=== PATIENT | male | born 1975 | race Caucasian/White ===

== ENCOUNTER → 2017-09-27 10:21 | Outpatient (CLI) | payer MEDICARE, MEDICAID, SELFPAY | PROVIDERS: PCP Family Medicine; Visit Provider Orthopaedic Surgery | DX: M17.11 Unilateral primary osteoarthritis, right knee (principal); M21.161 Varus deformity, not elsewhere classified, right knee; E11.9 Type 2 diabetes mellitus without complications; Z79.84 Long term (current) use of oral hypoglycemic drugs | CPT/HCPCS: 20610; 99213; J7325 ==

== ENCOUNTER 2017-12-01 07:01 | Outpatient (CLI) | payer MEDICARE, MEDICAID, SELFPAY ==
[2017-12-01 08:06] LABS: Hemoglobin A1C 6.7 % (4.5-6.2)
[2017-12-01 13:41] LABS: Cholesterol 120 mg/dL (50-200); HDL Cholesterol 28 mg/dL (40-60); LDL CHOLESTEROL 72 mg/dL (<100); Triglyceride 148 mg/dL (30-150)
== END 2017-12-01 07:21 ==
PROVIDERS: PCP Family Medicine; Visit Provider Family Medicine
DX: E11.9 Type 2 diabetes mellitus without complications (principal); E78.5 Hyperlipidemia, unspecified
CPT/HCPCS: 36415; 80061; 83721; 83036

== ENCOUNTER 2018-03-23 08:47 | Outpatient (CLI) | payer MEDICARE, MEDICAID, SELFPAY ==
[2018-03-23 10:16] LABS: Hemoglobin A1C 6.8 % (4.5-6.2)
== END 2018-03-23 09:07 ==
PROVIDERS: PCP Family Medicine; Visit Provider Family Medicine
DX: E11.9 Type 2 diabetes mellitus without complications (principal)
CPT/HCPCS: 36415; 83036

== ENCOUNTER → 2018-03-28 09:55 | Outpatient (BNVA) | payer MEDICARE, MEDICAID, SELFPAY | PROVIDERS: PCP Family Medicine; Visit Provider Orthopaedic Surgery | DX: M17.11 Unilateral primary osteoarthritis, right knee (principal) | CPT/HCPCS: 20610; 99211; 99213; J7325 ==

== ENCOUNTER 2018-05-18 07:00 | Emergency (ER) | payer MEDICARE, MEDICAID, SELFPAY ==
[2018-05-18 07:03] VITALS: BP 136/88; PULSE 88; RESP 14; TEMP 36.5; O2SAT 94
--- NOTE | 2018-05-18 07:03 | W.ED.GENAD ---
Discharge Plan Disposition Patient Disposition: HOME Condition: Stable Discharge Details Chief Complaint: DentalOral Clinical Impression: Abscess, dental Primary Care Provider: Binta Pichardo ED Provider: Manjeet Fields Home Meds and New Rx's Prescriptions: New penicillin V potassium 500 mg tablet 500 mg PO QID 10 Days Qty: 40 RF: 0 No Action aspirin [Aspir-81] 81 MG tablet,delayed release (DR/EC) 81 mg PO DAILY Qty: 90 RF: 4 rosuvastatin [Crestor] 40 MG tablet 40 mg PO DAILY Qty: 90 RF: 4 lisinopril 20 MG tablet 20 mg PO DAILY Qty: 90 RF: 4 blood-glucose meter 1 EACH misc 1 ea Miscellaneous DAILY Qty: 1 RF: 0 lancets 1 EACH misc 1 ea Miscellaneous DAILY Qty: 100 RF: 6 metformin 1,000 mg tablet 1,000 mg PO BID Qty: 180 RF: 3 Blood Glucose Test strip 1 ea Miscellaneous DAILY Qty: 100 RF: 6 omeprazole 20 mg capsule,delayed release(DR/EC) 20 mg PO DAILY Qty: 90 RF: 4 Discharge Instructions Instructions: Dental Abscess (ED) Additional Instructions: follow up with your dentist for definitive management you can take 1000mg tylenol and 600mg ibuprofen every 6 hours for pain as needed if you have difficulty breathing or difficulty swallowing liquids return to the emergency department Medical Decision Making 43 yo male comes in with one week of left upper mid molar pain and swelling for a few days. He has normal posterior pharynx and no submandibular swelling. He has mild swelling of the left upper mid molar gum line and pain with percussion to these teeth. No findings to suggest rosa. After discussion of draning here or in dentist office he would like to try here I was able to get a few cc's of purulent material out using an 18g needle, will place on abx and have him f/u with dentist, return precautions given Differential Diagnosis dental abscess, pulpitis HPI General Mode of arrival: ambulatory. Date/Time Provider Initiated Documentation: 05/18/18 07:02. Limitations to Documentation: no limitations. Information obtained by: patient. History of Present Illness 43 year old M presents to the emergency department with the chief complaint of left upper tooth pain, described as moderate, with intensity rated at 6. Quality is described as aching, and is localized to the mouth. Patient reports no radiation. Patient started experiencing this week(s) (1) and it has been constant. No relieving factors improve symptom(s), No exacerbating factors reported . Patient notes no other symptoms.. Patient did receive the following treatments prior to arrival, none Related Data Home Medications Medication Instructions Recorded Confirmed aspirin [Aspir 81] 81 mg PO DAILY #90 tab-cap 03/26/14 05/18/18 rosuvastatin [Crestor] 40 mg PO DAILY #90 tab-cap 01/22/17 05/18/18 lisinopril 20 mg PO DAILY #90 tab-cap 03/10/17 05/18/18 blood-glucose meter #1 ea 03/28/17 05/18/18 lancets #100 ea 03/28/17 05/18/18 metformin 1,000 mg tablet 1,000 mg PO BID #180 tab-cap 11/30/17 05/18/18 blood sugar diagnostic strips #100 strip 01/17/18 05/18/18 omeprazole 20 mg capsule,delayed 20 mg PO DAILY #90 tab-cap 05/12/18 05/18/18 release penicillin V potassium 500 mg PO QID 10 Days #40 tab 05/18/18 Previous Rx's Medication Instructions Recorded rosuvastatin [Crestor] 40 mg PO DAILY #90 tab-cap 01/22/17 lisinopril 20 mg PO DAILY #90 tab-cap 03/10/17 blood-glucose meter #1 ea 03/28/17 lancets #100 ea 03/28/17 metformin 1,000 mg tablet 1,000 mg PO BID #180 tab-cap 11/30/17 blood sugar diagnostic strips #100 strip 01/17/18 omeprazole 20 mg capsule,delayed 20 mg PO DAILY #90 tab-cap 05/12/18 release penicillin V potassium 500 mg PO QID 10 Days #40 tab 05/18/18 Allergies Allergy/AdvReac Type Severity Reaction Status Date / Time No Known Allergies Allergy Unverified 05/18/18 07:07 Review of Systems Review of Systems All systems reviewed & are unremarkable except as noted in HPI and below Constitutional Denies chills and Denies fever(s) ENT Denies change in voice Cardiovascular Denies chest pain and Denies dyspnea Respiratory Denies cough and Denies dyspnea Gastrointestinal Denies abdominal pain, Denies nausea and Denies vomiting [facility] Surgical History PROCEDURES Family History Mother No problems noted. Father Essential hypertension Personal history of malignant neoplasm Heart disease Hyperlipidemia Sister No problems noted. Grandfather Personal history of malignant neoplasm Grandfather No problems noted. Grandmother Diabetes Heart disease Hyperlipidemia Stroke Grandmother No problems noted. Social History Smoking/Tobacco Use Status: Former Tobacco Use Alcohol Intake: current Alcohol Intake frequency: 0-2 drinks per day Drug use: Never Do you feel safe at home: Yes Do you feel safe in your relationship?: Yes Exam Const General: no acute distress Orientation: alert HENMT Head: normal to inspection Ears: external ears normal General nose exam: external nose normal Mouth: moist mucous membranes Eyes General: appearance normal, both eyes and all related structures Neck Neck: normal visual inspection Resp Effort & Inspection: normal respiratory effort and able to speak in complete sentences Cardio Rate: regular rate Skin General skin exam: no rashes or lesions noted Neuro General: alert and oriented x3 Extrem General: normal to inspection Psych Mental Status: mental status grossly normal Procedures Abscess I/D Site: Other (left upper tooth abscess) Side (if applicable): Left Sedation/analgesia: None Local Anesthetic: Lidocaine 1% Amount of anesthesia used (mL): 3 Technique: Needle Aspiration Amount of fluid expressed (mL): 3 Irrigation: No Packing used?: None Complications: Pain
--- NOTE | 2018-05-18 07:17 | ED.GENADUL_ITS ---
Discharge Plan Disposition Patient Disposition: HOME Condition: Stable Discharge Details Chief Complaint: DentalOral Clinical Impression: Abscess, dental Primary Care Provider: Binta Pichardo ED Provider: Manjeet Fields Home Meds and New Rx's Prescriptions: New penicillin V potassium 500 mg tablet 500 mg PO QID 10 Days Qty: 40 RF: 0 No Action aspirin [Aspir-81] 81 MG tablet,delayed release (DR/EC) 81 mg PO DAILY Qty: 90 RF: 4 rosuvastatin [Crestor] 40 MG tablet 40 mg PO DAILY Qty: 90 RF: 4 lisinopril 20 MG tablet 20 mg PO DAILY Qty: 90 RF: 4 blood-glucose meter 1 EACH misc 1 ea Miscellaneous DAILY Qty: 1 RF: 0 lancets 1 EACH misc 1 ea Miscellaneous DAILY Qty: 100 RF: 6 metformin 1,000 mg tablet 1,000 mg PO BID Qty: 180 RF: 3 Blood Glucose Test strip 1 ea Miscellaneous DAILY Qty: 100 RF: 6 omeprazole 20 mg capsule,delayed release(DR/EC) 20 mg PO DAILY Qty: 90 RF: 4 Discharge Instructions Instructions: Dental Abscess (ED) Additional Instructions: follow up with your dentist for definitive management you can take 1000mg tylenol and 600mg ibuprofen every 6 hours for pain as needed if you have difficulty breathing or difficulty swallowing liquids return to the emergency department Medical Decision Making 43 yo male comes in with one week of left upper mid molar pain and swelling for a few days. He has normal posterior pharynx and no submandibular swelling. He has mild swelling of the left upper mid molar gum line and pain with percussion to these teeth. No findings to suggest rosa. After discussion of draning here or in dentist office he would like to try here I was able to get a few cc's of purulent material out using an 18g needle, will place on abx and have him f/u with dentist, return precautions given Differential Diagnosis dental abscess, pulpitis HPI General Mode of arrival: ambulatory . Date/Time Provider Initiated Documentation: 05/18/18 07:02 . Limitations to Documentation: no limitations . Information obtained by: patient . History of Present Illness 43 year old M presents to the emergency department with the chief complaint of left upper tooth pain, described as moderate, with intensity rated at 6. Quality is described as aching, and is localized to the mouth. Patient reports no radiation. Patient started experiencing this week(s) (1) and it has been constant. No relieving factors improve symptom(s), No exacerbating factors reported . Patient notes no other symptoms.. Patient did receive the following treatments prior to arrival, none Related Data Home Medications Medication Instructions Recorded Confirmed aspirin [Aspir 81] 81 mg PO DAILY #90 tab-cap 03/26/14 05/18/18 rosuvastatin [Crestor] 40 mg PO DAILY #90 tab-cap 01/22/17 05/18/18 lisinopril 20 mg PO DAILY #90 tab-cap 03/10/17 05/18/18 blood-glucose meter #1 ea 03/28/17 05/18/18 lancets #100 ea 03/28/17 05/18/18 metformin 1,000 mg tablet 1,000 mg PO BID #180 tab-cap 11/30/17 05/18/18 blood sugar diagnostic strips #100 strip 01/17/18 05/18/18 omeprazole 20 mg capsule,delayed 20 mg PO DAILY #90 tab-cap 05/12/18 05/18/18 release penicillin V potassium 500 mg PO QID 10 Days #40 tab 05/18/18 Previous Rx's Medication Instructions Recorded rosuvastatin [Crestor] 40 mg PO DAILY #90 tab-cap 01/22/17 lisinopril 20 mg PO DAILY #90 tab-cap 03/10/17 blood-glucose meter #1 ea 03/28/17 lancets #100 ea 03/28/17 metformin 1,000 mg tablet 1,000 mg PO BID #180 tab-cap 11/30/17 blood sugar diagnostic strips #100 strip 01/17/18 omeprazole 20 mg capsule,delayed 20 mg PO DAILY #90 tab-cap 05/12/18 release penicillin V potassium 500 mg PO QID 10 Days #40 tab 05/18/18 Allergies Allergy/AdvReac Type Severity Reaction Status Date / Time No Known Allergies Allergy Unverified 05/18/18 07:07 Review of Systems Review of Systems All systems reviewed & are unremarkable except as noted in HPI and below Constitutional Denies chills and Denies fever(s) ENT Denies change in voice Cardiovascular Denies chest pain and Denies dyspnea Respiratory Denies cough and Denies dyspnea Gastrointestinal Denies abdominal pain, Denies nausea and Denies vomiting [facility] Surgical History PROCEDURES Family History Mother No problems noted. Father Essential hypertension Personal history of malignant neoplasm Heart disease Hyperlipidemia Sister No problems noted. Grandfather Personal history of malignant neoplasm Grandfather No problems noted. Grandmother Diabetes Heart disease Hyperlipidemia Stroke Grandmother No problems noted. Social History Smoking/Tobacco Use Status: Former Tobacco Use Alcohol Intake: current Alcohol Intake frequency: 0-2 drinks per day Drug use: Never Do you feel safe at home: Yes Do you feel safe in your relationship?: Yes Exam Const General: no acute distress Orientation: alert HENMT Head: normal to inspection Ears: external ears normal General nose exam: external nose normal Mouth: moist mucous membranes Eyes General: appearance normal, both eyes and all related structures Neck Neck: normal visual inspection Resp Effort & Inspection: normal respiratory effort and able to speak in complete sentences Cardio Rate: regular rate Skin General skin exam: no rashes or lesions noted Neuro General: alert and oriented x3 Extrem General: normal to inspection Psych Mental Status: mental status grossly normal Procedures Abscess I/D Site: Other (left upper tooth abscess) Side (if applicable): Left Sedation/analgesia: None Local Anesthetic: Lidocaine 1% Amount of anesthesia used (mL): 3 Technique: Needle Aspiration Amount of fluid expressed (mL): 3 Irrigation: No Packing used?: None Complications: Pain
== END 2018-05-18 07:25 | disposition home or self-care (01) ==
PROVIDERS: Emergency Provider Emergency Medicine; PCP Family Medicine
DX: K04.7 Periapical abscess without sinus (principal)
CPT/HCPCS: 10160; 99283

== ENCOUNTER → 2018-09-26 09:45 | Outpatient (BNVA) | payer MEDICARE, MEDICAID, SELFPAY | PROVIDERS: PCP Family Medicine; Referring Provider Family Medicine; Visit Provider Orthopaedic Surgery | DX: M17.11 Unilateral primary osteoarthritis, right knee (principal) | CPT/HCPCS: 20610; 99211; 99213; J7325 ==

== ENCOUNTER 2018-11-23 08:03 | Outpatient (CLI) | payer MEDICARE, MEDICAID, SELFPAY ==
[2018-11-23 08:45] LABS: Hemoglobin A1C 8.9 % (4.5-6.2)
[2018-11-23 09:05] LABS: COMMENT (LAB VIEW ONLY) 181.04 mg/dL; Microalb ug/mg Crea 14.3 ug/mg Cr
[2018-11-23 09:29] LABS: ALT 29 U/L (16-63); AST 16 U/L (15-37); Albumin 4.2 g/dL (3.4-5.0); Alkaline Phosphatase 120 U/L (46-116); Anion Gap 7.5 mmol/L (3-11); BUN 16 mg/dL (7-18); Bilirubin, Total 1.9 mg/dL (0.2-1.0); CO2 31.5 mmol/L (21.0-32.0); CREATININE 1.11 mg/dL (0.70-1.30); Calculated LDL 71 mg/dL; Chloride 100 mmol/L (98-107); Cholesterol 127 mg/dL (50-200); Glucose 283 mg/dL (70-100); HDL Cholesterol 27 mg/dL (40-60); Potassium 4.4 mmol/L (3.5-5.1); Sodium 139 mmol/L (136-145); Total Protein 7.4 g/dL (6.4-8.2); Triglyceride 147 mg/dL (30-150)
== END 2018-11-23 08:23 ==
PROVIDERS: PCP Family Medicine; Visit Provider Family Medicine
DX: E11.9 Type 2 diabetes mellitus without complications (principal)
CPT/HCPCS: 36415; 80053; 80061; 82043; 82570; 83036

== ENCOUNTER 2019-02-23 09:51 | Outpatient (CLI) | payer MEDICARE, MEDICAID, SELFPAY ==
[2019-02-23 11:08] LABS: Hemoglobin A1C 8.6 % (3.8-5.6)
[2019-02-23 11:30] LABS: ALT 38 U/L (16-63); AST 19 U/L (15-37); Albumin 4.5 g/dL (3.4-5.0); Alkaline Phosphatase 119 U/L (46-116); Anion Gap 7.4 mmol/L (3-11); BUN 16 mg/dL (7-18); Bilirubin, Total 1.7 mg/dL (0.2-1.0); CO2 31.6 mmol/L (21.0-32.0); CREATININE 0.96 mg/dL (0.70-1.30); Calcium 9.4 mg/dL (8.5-10.1); Chloride 102 mmol/L (98-107); Glucose 238 mg/dL (74-106); Potassium 4.5 mmol/L (3.5-5.1); Sodium 141 mmol/L (136-145); Total Protein 7.7 g/dL (6.4-8.2)
== END 2019-02-23 10:11 ==
PROVIDERS: PCP Family Medicine; Visit Provider Family Medicine
DX: E11.9 Type 2 diabetes mellitus without complications (principal)
CPT/HCPCS: 36415; 80053; 83036

== ENCOUNTER 2019-03-26 11:50 | Outpatient (CLI) | payer MEDICARE, MEDICAID, SELFPAY ==
--- NOTE | 2019-03-26 10:33 | DI.RAD_ITS ---
EXAM: XR STANDING ALIGNMENT INDICATION: KNEE PAIN. COMPARISON: No exams were available for comparison TECHNIQUE: 2D digital imaging was performed. FINDINGS: There is mild bilateral acetabular spurring. There is a mild leg length discrepancy. There are dege nerative changes of both knees. The degenerative changes are severe in the medial femoral tibial kia nt of the right knee where there is varus angulation. Some varus angulation is also seen at the left knee. There is mild spurring at the medial malleoli. The ankle joint spaces and hip joint spaces a re well maintained. IMPRESSION: Severe degenerative changes of the right knee.
--- NOTE | 2019-03-26 10:36 | DI.RAD_ITS ---
EXAM: XR KNEE RT 3V AP,LAT,GUDELIA INDICATION: KNEE PAIN. COMPARISON: MRI R LOWER JOINT WO CONT from 03/19/2013 TECHNIQUE: 2D digital imaging was performed. FINDINGS: There are severe degenerative changes of the medial femoral tibial joint space. There is prominent p eriarticular spurring throughout. There is varus angulation. A joint effusion is seen. IMPRESSION: Severe degenerative changes greatest of the medial femoral tibial joint.
== END 2019-03-26 12:10 ==
PROVIDERS: PCP Family Medicine; Referring Provider Family Medicine; Visit Provider Student in an Organized Health Care Education/Training Program
DX: M25.561 Pain in right knee (principal); M17.11 Unilateral primary osteoarthritis, right knee; M21.70 Unequal limb length (acquired), unspecified site; M25.461 Effusion, right knee; E11.8 Type 2 diabetes mellitus with unspecified complications; Z79.84 Long term (current) use of oral hypoglycemic drugs
CPT/HCPCS: 20610; 73562; 99213; 77073; J1040

== ENCOUNTER → 2019-07-02 10:06 | Outpatient (BNVA) | payer MEDICARE, MEDICAID, SELFPAY | PROVIDERS: PCP Family Medicine; Referring Provider Family Medicine; Visit Provider Student in an Organized Health Care Education/Training Program | DX: M17.31 Unilateral post-traumatic osteoarthritis, right knee | CPT/HCPCS: 99212; 99213 ==

== ENCOUNTER 2019-08-02 04:19 | Outpatient (CLI) | payer MEDICARE, MEDICAID, SELFPAY ==
[2019-08-02 07:57] LABS: Abs Immature Grans 0.01 k/cumm (0.0-0.09); Absolute Basophil Count 0.01 k/cumm (0.0-0.2); Absolute Eosinophil Count 0.14 k/cumm (0.0-0.7); Absolute Lymphocyte Count 1.84 k/cumm (1.2-3.4); Absolute Neutrophil Count 3.58 k/cumm (1.2-6.7); Basophils % 0.2; Eosinophils % 2.3; HCT 47.4 % (40.0-50.0); HGB 16.7 g/dL (13.5-17.5); Immature Grans % 0.2 %; Lymphocytes % 30.3; Mean Corp. HGB Concentration 35.2 g/dL (32.0-36.0); Mean Corpuscular Hemoglobin 30.4 pg (27.0-33.0); Mean Corpuscular Volume 86.3 fL (80-95); Mean Platelet Volume 10.8 fL (8.0-11.0); Monocytes % 8.2; Neutrophils % 58.8; Platelet Count 199 x1000/uL (130-400); RBC 5.49 m/cumm (4.50-6.00); RBC Distribution Width 11.6 % (11.8-14.1); White Blood Cell Count 6.08 k/cumm (4.4-10.8)
[2019-08-02 09:03] LABS: ALT 33 U/L (16-63); AST 15 U/L (15-37); Albumin 4.4 g/dL (3.4-5.0); Alkaline Phosphatase 117 U/L (46-116); Anion Gap 7.3 mmol/L (3-11); BUN 25 mg/dL (7-18); Bilirubin, Total 1.4 mg/dL (0.2-1.0); CO2 30.7 mmol/L (21.0-32.0); CREATININE 1.25 mg/dL (0.70-1.30); Calcium 9.4 mg/dL (8.5-10.1); Chloride 100 mmol/L (98-107); Glucose 240 mg/dL (74-106); Potassium 4.3 mmol/L (3.5-5.1); Sodium 138 mmol/L (136-145); Total Protein 7.6 g/dL (6.4-8.2)
== END 2019-08-02 04:39 ==
PROVIDERS: PCP Family Medicine; Visit Provider Family Medicine
DX: R07.89 Other chest pain (principal); E11.9 Type 2 diabetes mellitus without complications
CPT/HCPCS: 36415; 80053; 83036; 85025

== ENCOUNTER 2019-09-11 03:24 | Outpatient (CLI) | payer MEDICARE, MEDICAID, SELFPAY ==
[2019-09-11 08:56] LABS: ALT 35 U/L (16-63); AST 15 U/L (15-37); Albumin 4.1 g/dL (3.4-5.0); Alkaline Phosphatase 110 U/L (46-116); Anion Gap 8.1 mmol/L (3-11); BUN 18 mg/dL (7-18); Bilirubin, Total 1.6 mg/dL (0.2-1.0); CO2 29.9 mmol/L (21.0-32.0); CREATININE 1.11 mg/dL (0.70-1.30); Calcium 9.2 mg/dL (8.5-10.1); Calculated LDL 64 mg/dL (<100); Chloride 104 mmol/L (98-107); Cholesterol 126 mg/dL (<200); Glucose 197 mg/dL (74-106); HDL Cholesterol 24 mg/dL (40-60); Potassium 3.9 mmol/L (3.5-5.1); Sodium 142 mmol/L (136-145); Triglyceride 192 mg/dL (<150)
== END 2019-09-11 03:44 ==
PROVIDERS: PCP Family Medicine; Visit Provider Family Medicine
DX: E11.9 Type 2 diabetes mellitus without complications (principal)
CPT/HCPCS: 36415; 80053; 80061; 83036

== ENCOUNTER 2019-12-10 01:51 | Outpatient (CLI) | payer MEDICARE, MEDICAID, SELFPAY ==
[2019-12-10 10:26] LABS: Hemoglobin A1C 6.2 % (<5.7)
[2019-12-10 11:00] LABS: COMMENT (LAB VIEW ONLY) 111.92 mg/dL; Microalb ug/mg Crea 11.5 ug/mg Cr
[2019-12-10 11:03] LABS: ALT 29 U/L (16-63); AST 16 U/L (15-37); Albumin 4.4 g/dL (3.4-5.0); Alkaline Phosphatase 98 U/L (46-116); Anion Gap 5.2 mmol/L (3-11); BUN 23 mg/dL (7-18); Bilirubin, Total 2.2 mg/dL (0.2-1.0); CO2 30.8 mmol/L (21.0-32.0); CREATININE 1.11 mg/dL (0.70-1.30); Calcium 9.3 mg/dL (8.5-10.1); Chloride 102 mmol/L (98-107); Glucose 138 mg/dL (74-106); Potassium 4.4 mmol/L (3.5-5.1); Sodium 138 mmol/L (136-145); Total Protein 7.7 g/dL (6.4-8.2)
== END 2019-12-10 02:11 ==
PROVIDERS: PCP Family Medicine; Visit Provider Family Medicine
DX: E11.9 Type 2 diabetes mellitus without complications (principal)
CPT/HCPCS: 36415; 80053; 82043; 82570; 83036

== ENCOUNTER 2020-06-23 03:28 | Outpatient (CLI) | payer MEDICARE, MEDICAID, SELFPAY ==
[2020-06-23 08:46] LABS: Hemoglobin A1C 6.4 % (<5.7)
[2020-06-23 09:07] LABS: Anion Gap 9.1 mmol/L (3-11); BUN 17 mg/dL (7-18); CO2 29.9 mmol/L (21.0-32.0); CREATININE 1.1 mg/dL (0.70-1.30); Calcium 9.1 mg/dL (8.5-10.1); Chloride 103 mmol/L (98-107); Glucose 124 mg/dL (74-106); Potassium 4.1 mmol/L (3.5-5.1); Sodium 142 mmol/L (136-145)
== END 2020-06-23 03:29 | disposition home or self-care (01) ==
LOC: LBO 03:28
PROVIDERS: PCP Family Medicine; Visit Provider Family Medicine
DX: E11.9 Type 2 diabetes mellitus without complications (principal)
CPT/HCPCS: 36415; 80048; 83036

== ENCOUNTER 2021-03-19 02:58 | Outpatient (CLI) | payer MEDICARE, MEDICAID, SELFPAY ==
[2021-03-19 09:03] LABS: Hemoglobin A1C 6.8 % (<5.7)
[2021-03-19 10:12] LABS: COMMENT (LAB VIEW ONLY) 163.28 mg/dL; Microalb ug/mg Crea 24.7 ug/mg Cr
[2021-03-19 10:16] LABS: Calculated LDL 83 mg/dL (<100); Cholesterol 141 mg/dL (<200); HDL Cholesterol 32 mg/dL (40-60); Triglyceride 130 mg/dL (<150)
== END 2021-03-19 02:59 | disposition home or self-care (01) ==
LOC: LBO 02:59
PROVIDERS: PCP Family Medicine; Visit Provider Family Medicine
DX: E11.9 Type 2 diabetes mellitus without complications (principal)
CPT/HCPCS: 36415; 80061; 82043; 82570; 83036

== ENCOUNTER 2021-06-01 10:46 | Outpatient (REF) | payer MEDICARE, MEDICAID, SELFPAY ==
[2021-06-01 16:55] LABS: Hemoglobin A1C 7.7 % (<5.7)
[2021-06-01 17:08] LABS: ALT 44 U/L (16-63); AST 19 U/L (15-37); Albumin 4.2 g/dL (3.4-5.0); Alkaline Phosphatase 125 U/L (46-116); Anion Gap 9.9 mmol/L (3-11); BUN 18 mg/dL (7-18); Bilirubin, Total 1.8 mg/dL (0.2-1.0); CO2 26.1 mmol/L (21.0-32.0); CREATININE 1.1 mg/dL (0.70-1.30); Calcium 8.9 mg/dL (8.5-10.1); Calculated LDL 50 mg/dL (<100); Chloride 100 mmol/L (98-107); Cholesterol 127 mg/dL (<200); Glucose 327 mg/dL (74-106); HDL Cholesterol 29 mg/dL (40-60); Potassium 4.1 mmol/L (3.5-5.1); Sodium 136 mmol/L (136-145); Total Protein 7.2 g/dL (6.4-8.2); Triglyceride 244 mg/dL (<150)
== END 2021-06-01 10:47 | disposition home or self-care (01) ==
LOC: NCHCN 10:46
PROVIDERS: Visit Provider Physician Assistant
DX: E11.9 Type 2 diabetes mellitus without complications (principal)
CPT/HCPCS: 80053; 80061; 83036

== ENCOUNTER 2021-06-11 01:43 | Outpatient (CLI) | payer MEDICARE, MEDICAID, SELFPAY ==
--- NOTE | 2021-06-11 13:44 | DI.RAD_ITS ---
Exam(s) XR CERVICAL SPINE COMP 4-5V EXAM: XR CERVICAL SPINE COMP 4-5V CLINICAL HISTORY: NECK PAIN, M54.2 TECHNIQUE: COMPARISON: No exams were available for comparison FINDINGS: Six views were obtained. There is disc space narrowing at C5-6 and C6-7. There are mild hypertrophi c endplate changes also noted at these levels. There is a mild kyphosis of the lower lumbar spine. Neural foramina appear fairly well maintained on oblique views. No evidence of fracture or dislocati on. IMPRESSION: Degenerative changes, predominantly at C5-6 and C6-7. RADIATION DOSE DELIVERED: Total DLP
== END 2021-06-11 02:03 ==
PROVIDERS: PCP Physician Assistant; Visit Provider Physician Assistant
DX: M50.322 Other cervical disc degeneration at C5-C6 level; M50.323 Other cervical disc degeneration at C6-C7 level
CPT/HCPCS: 72050

== ENCOUNTER 2021-12-30 17:52 | Outpatient (REF) | payer MEDICARE, MEDICAID, SELFPAY ==
[2021-12-30 18:41] LABS: Microalb ug/mg Crea 27.6 ug/mg Cr
== END 2021-12-30 17:53 | disposition home or self-care (01) ==
LOC: NCHCN 17:52
PROVIDERS: PCP Physician Assistant; Visit Provider Physician Assistant
DX: E11.9 Type 2 diabetes mellitus without complications (principal)
CPT/HCPCS: 82043; 82570

== ENCOUNTER 2022-04-30 13:19 | Outpatient (REF) | payer MEDICARE, MEDICAID, SELFPAY ==
[2022-04-30 17:27] LABS: Hemoglobin A1C 9.1 % (<5.7)
[2022-04-30 17:40] LABS: COMMENT (LAB VIEW ONLY) 192.49 mg/dL; Microalb ug/mg Crea 8.8 ug/mg Cr
[2022-04-30 17:58] LABS: ALT 31 U/L (16-63); AST 17 U/L (15-37); Albumin 4.2 g/dL (3.4-5.0); Alkaline Phosphatase 114 U/L (46-116); Anion Gap 7.2 mmol/L (3-11); BUN 19 mg/dL (7-18); CO2 29.8 mmol/L (21.0-32.0); CREATININE 1.2 mg/dL (0.70-1.30); Calcium 9.4 mg/dL (8.5-10.1); Calculated LDL 57 mg/dL (<100); Chloride 102 mmol/L (98-107); Cholesterol 105 mg/dL (<200); Estimated GFR 75.53 (mL/min/1.73m2); Glucose 251 mg/dL (74-106); HDL Cholesterol 33 mg/dL (40-60); Potassium 4.1 mmol/L (3.5-5.1); Sodium 139 mmol/L (136-145); Total Protein 7.1 g/dL (6.4-8.2); Triglyceride 78 mg/dL (<150)
== END 2022-04-30 13:20 | disposition home or self-care (01) ==
LOC: NCHCN 13:19
PROVIDERS: PCP Physician Assistant; Visit Provider Physician Assistant
DX: E11.9 Type 2 diabetes mellitus without complications (principal)
CPT/HCPCS: 80053; 80061; 82043; 82570; 83036

== ENCOUNTER 2023-04-21 13:44 | Outpatient (REF) | payer MEDICARE, MEDICAID, SELFPAY ==
[2023-04-21 16:01] LABS: ALT 39 U/L (16-63); AST 16 U/L (15-37); Albumin 4.4 g/dL (3.4-5.0); Alkaline Phosphatase 123 U/L (46-116); BUN 25 mg/dL (7-18); CREATININE 1.4 mg/dL (0.70-1.30); Calcium 9.4 mg/dL (8.5-10.1); Calculated LDL 126 mg/dL (<100); Chloride 106 mmol/L (98-107); Cholesterol 233 mg/dL (<200); Estimated GFR 62.39 (mL/min/1.73m2); Glucose 253 mg/dL (74-106); HDL Cholesterol 33 mg/dL (40-60); Potassium 3.8 mmol/L (3.5-5.1); Sodium 142 mmol/L (136-145); Total Protein 7.7 g/dL (6.4-8.2); Triglyceride 374 mg/dL (<150)
[2023-04-21 16:25] LABS: Hemoglobin A1C 6.7 % (<5.7)
== END 2023-04-21 13:45 | disposition home or self-care (01) ==
LOC: NCHCN 13:44
PROVIDERS: PCP Physician Assistant; Referring Provider Physician Assistant; Visit Provider Physician Assistant
DX: E11.9 Type 2 diabetes mellitus without complications (principal)
CPT/HCPCS: 80053; 80061; 83036

== ENCOUNTER 2023-06-09 22:18 | Emergency (ER) | payer MEDICARE, MEDICAID, SELFPAY ==
[2023-06-09] VITALS (51 sets, daily range): BP systolic 124–160; BP diastolic 74–94; PULSE 70–77; RESP 8–29; TEMP 36.4; O2SAT 90–98
--- NOTE | 2023-06-09 22:15 | RT.EKG_ITS ---
APPROVED REPORT Exam: Resting ECG Reason for Exam: chest pain Patient Location: E HR:70 bpm ECG Measurements Heart Rate 70 AXIS UT 199 P 68 QRSd 104 QRS 56 QT 417 T 31 QTc 451 Conclusion Sinus rhythm...normal P axis, V-rate 60- 99
--- NOTE | 2023-06-09 22:30 | DI.RAD_ITS ---
Exam(s) XR CHEST 2V PA LATERAL EXAM: XR CHEST 2V PA LATERAL CLINICAL HISTORY: chest pain TECHNIQUE: 2D digital imaging was performed of the chest. Two images were obtained. PA and lateral views were obtained. COMPARISON: No exams were available for comparison FINDINGS: MEDIASTINUM: Normal. HEART: Normal. PULMONARY VASCULATURE: Normal. LUNGS: Clear. PLEURAL SPACE: No pleural effusion or pneumothorax. BONE:Within normal limits for the patient's age. OTHER FINDINGS:Curvilinear air is seen beneath the left hemidiaphragm. This likely reflects normal a ir within the stomach. Follow-up as clinically appropriate. IMPRESSION: No acute pulmonary findings. DATA REPOSITORY: RADIATION DOSE DELIVERED:
[2023-06-09 22:42] LABS: Abs Immature Grans 0.01 10^3/uL (0.0-0.06); Absolute Basophil Count 0.03 10^3/uL (0.0-0.2); Absolute Eosinophil Count 0.11 10^3/uL (0.0-0.7); Absolute Lymphocyte Count 1.79 10^3/uL (1.2-3.4); Absolute Monocyte Count 0.42 10^3/uL (0.1-0.8); Absolute Neutrophil Count 3.03 10^3/uL (1.2-6.7); Basophils % 0.6; HCT 44.3 % (40.0-50.0); HGB 15.4 g/dL (13.5-17.5); Immature Grans % 0.2; Lymphocytes % 33.2; MCH 30.9 pg (27.0-33.0); MCHC 34.8 % (32.0-36.0); MCV 89 fL (80-95); MPV 10.6 fL (8.0-11.0); Monocytes % 7.8; Neutrophils % 56.2; Platelet Count 167 10^3/uL (130-400); RBC 4.99 10^6/uL (4.36-5.78); RDW 11.6 % (11.8-14.1); RDW-SD 36.7 fL; WBC 5.39 10^3/uL (4.4-10.8)
[2023-06-09] MEDS: Aspirin 81 MG CHEW 324 MG CH (22:42)
[2023-06-09] MEDS: Mylanta Suspension 30 ML CUP PO (22:44)
[2023-06-09] MEDS: MORPHine 10 MG/ML VIAL 4 MG IVP (22:45)
[2023-06-09 23:01] LABS: ALT 33 U/L (16-63); AST 14 U/L (15-37); Alkaline Phosphatase 113 U/L (46-116); BUN 15 mg/dL (7-18); CREATININE 1.1 mg/dL (0.70-1.30); Calcium 8.4 mg/dL (8.5-10.1); Chloride 105 mmol/L (98-107); Estimated GFR 83.32 (mL/min/1.73m2); Glucose 259 mg/dL (74-106); Potassium 3.4 mmol/L (3.5-5.1); Sodium 143 mmol/L (136-145); Total Protein 7.2 g/dL (6.4-8.2)
[2023-06-09 23:05] LABS: Troponin I < 50 ng/L (< or =60)
--- NOTE | 2023-06-09 23:15 | DI.VRAD_ITS ---
PROCEDURE INFORMATION: Exam: XR Chest Exam date and time: 06/09/2023 10:54 PM Age: 48 years old Clinical indication: Chest wall pain; Additional info: Chest pain TECHNIQUE: Imaging protocol: Radiologic exam of the chest. Views: 2 views. COMPARISON: CR XR CERVICAL SPINE COMP 4-5V 06/11/2021 1:34 PM FINDINGS: Lungs: Unremarkable. No consolidation. Pleural spaces: Unremarkable. No pleural effusion. No pneumothorax. Heart/Mediastinum: Unremarkable. No cardiomegaly. Bones/joints: Unremarkable. IMPRESSION: No acute findings. Dictated and Authenticated by: Jaswant Ramírez MD. Ordering:HIMA Doss MD
[2023-06-09] MEDS: Ketorolac 30 MG/ML VIAL IVP (23:47)
[2023-06-09] MEDS: Pantoprazole 40 MG VIAL IVP (23:47)
[2023-06-10] VITALS (80 sets, daily range): BP systolic 113–132; BP diastolic 59–77; PULSE 70–82; RESP 12–25; TEMP 36.9; O2SAT 93–98
--- NOTE | 2023-06-10 00:38 | ED.GENADUL_ITS ---
Discharge Plan Disposition Patient Disposition: Home Condition: Good Discharge Details Chief Complaint: Chest Pain Clinical Impression: Chest pain Primary Care Provider: Dino Dee ED Provider: Romario Acevedo Home Meds and New Rx's Prescriptions: No Action (DME) Medial Offloader Brace Qty: 1 0RF Rx Instructions: Please apply to RIGHT knee for medial OA and instability semaglutide 14 mg tablet 14 mg PO DAILY Qty: 90 4RF Rx Instructions: take one tablet daily metformin 1,000 mg tablet 1,000 mg PO DAILY Qty: 90 4RF Rx Instructions: decreased by pt/ NOT SENT (DME) Blood Glucose Test Strip 1 ea Miscellaneous DAILY Qty: 100 3RF Rx Instructions: FOR One Touch METER. Ultra Blue. PT DOES NOT USE INSULIN. E11.9E omeprazole 20 mg capsule,delayed release(DR/EC) 20 mg PO DAILY Qty: 90 3RF Centrum Complete 18-400 mg-mcg tablet 1 tab PO DAILY aspirin [Aspir-81] 81 MG tablet,delayed release (DR/EC) 81 mg PO DAILY Qty: 90 (DME) lancets 28 gauge misc 1 ea Miscellaneous DAILY Qty: 100 6RF Rx Instructions: FOR One Touch METER. NO INSULIN. DIAGNOSIS CODE E11.9 (DME) blood-glucose meter [OneTouch Ultra2 Meter] Misc 1 ea Miscellaneous DAILY Qty: 1 4RF Rx Instructions: Check blood sugar twice a day lisinopril 20 mg tablet 20 mg PO DAILY Qty: 90 4RF Rx Instructions: take one tablet daily rosuvastatin [Crestor] 40 mg tablet 40 mg PO DAILY Qty: 90 4RF bupropion HCl 150 mg tablet extended release 24 hr 150 mg PO QAM Qty: 90 1RF dapagliflozin propanediol 10 mg tablet 10 mg PO DAILY Qty: 90 1RF Discharge Instructions Instructions: Chest Pain (ED) Additional Instructions: Your workup is negative for any organ damage to your heart, lungs, liver, or pancreas. Your symptoms have improved here in the emergency room with generalized pain relievers and the medications that help control your reflux disease. Continue current medications as previously directed. Follow-up with your regular primary care doctor for recheck and further management, especially if you have any recurrent or ongoing symptoms. You can always return to the ER for any new concerns or sudden changes in your health which you feel require emergency medical attention. Discharge Data Discharge Physician: Romario Acevedo [facility] General Date/Time Provider Initiated Documentation: 06/09/23 22:25 . HPI Narrative: The patient has a 48-year-old male, with a past medical history significant for diabetes mellitus, hypertension, gastroesophageal reflux disease, hyperlipidemia, and depression, presents to the emergency department this evening after developing chest pain while at rest watching TV and playing the [employer] shortly before arrival to the emergency room. The patient states that he was having a somewhat piercing chest pain, which he felt was like a needle sticking into the front of his chest wall, overlying his left parasternal border. The patient reports that the symptoms did make him feel somewhat short of breath, but he denied any sweating or nausea symptoms. The patient denies a cough or recent upper respiratory tract infection symptoms. The patient denies any fevers or chills. Related Data Home Medications Medication Instructions Recorded Confirmed aspirin 81 mg tablet,delayed 81 mg PO DAILY #90 tab-caps 03/26/14 06/09/23 release (Aspir-) multivitamin-ferrous 1 tab PO DAILY 12/04/18 06/09/23 fumarate-folic acid 18 mg-400 mcg tablet (Centrum Complete) lancets 28 gauge #100 ea 01/23/19 06/09/23 Medial Offloader Brace #1 ea 04/09/19 06/09/23 blood-glucose meter (OneTouch #1 ea 11/22/19 06/09/23 Ultra2 Meter) lisinopril 20 mg tablet 20 mg PO DAILY #90 tab-caps 10/27/20 06/09/23 rosuvastatin 40 mg tablet (Crestor) 40 mg PO DAILY #90 tab-caps 10/27/20 06/09/23 semaglutide 14 mg tablet 14 mg PO DAILY #90 tabs 12/22/20 06/09/23 metformin 1,000 mg tablet 1,000 mg PO DAILY #90 tab-caps 12/24/20 06/09/23 blood sugar diagnostic (Blood #100 strips 03/24/21 06/09/23 Glucose Test strips) omeprazole 20 mg capsule,delayed 20 mg PO DAILY #90 tab-caps 03/24/21 06/09/23 release bupropion HCl 150 mg 24 hr tablet, 150 mg PO QAM #90 tabs 05/27/21 06/09/23 extended release dapagliflozin propanediol 10 mg 10 mg PO DAILY #90 tabs 09/03/21 06/09/23 tablet Previous Rx's Medication Instructions Recorded lancets 28 gauge #100 ea 01/23/19 Medial Offloader Brace #1 ea 04/09/19 blood-glucose meter (OneTouch #1 ea 11/22/19 Ultra2 Meter) lisinopril 20 mg tablet 20 mg PO DAILY #90 tab-caps 10/27/20 rosuvastatin 40 mg tablet (Crestor) 40 mg PO DAILY #90 tab-caps 10/27/20 semaglutide 14 mg tablet 14 mg PO DAILY #90 tabs 12/22/20 metformin 1,000 mg tablet 1,000 mg PO DAILY #90 tab-caps 12/24/20 blood sugar diagnostic (Blood #100 strips 03/24/21 Glucose Test strips) omeprazole 20 mg capsule,delayed 20 mg PO DAILY #90 tab-caps 03/24/21 release bupropion HCl 150 mg 24 hr tablet, 150 mg PO QAM #90 tabs 05/27/21 extended release dapagliflozin propanediol 10 mg 10 mg PO DAILY #90 tabs 09/03/21 tablet Allergies Allergy/AdvReac Type Severity Reaction Status Date / Time No Known Allergies Allergy Unverified 06/09/23 22:29 General Stated Complaint: Chest Pain LUKE: 3 Exam Const General: cooperative, comfortable and no acute distress Resp Effort & Inspection: normal respiratory effort and able to speak in complete sentences Auscultation: clear to auscultation bilaterally Cardio Rate: regular rate Rhythm: regular rhythm Heart Sounds: S1 normal and S2 normal GI Inspection: normal to inspection Palpation: soft and nontender Auscultation: normal bowel sounds Skin General skin exam: no rashes or lesions noted Lesions: no lesions Wounds: no wounds Neuro General: patient alert, patient awake, patient oriented x3 and moves all extremities Cranial Nerves: CN's II-XI intact bilaterally Cognition: normal cognition Speech: speech normal Motor: muscle tone normal throughout and strength 5/5 throughout Sensory Exam: no sensory deficits noted Course Vital Signs Vital signs: Vital Signs Temperature 36.4 C 06/09/23 22:21 Pulse 70 06/09/23 22:21 Respiratory Rate 16 06/09/23 22:21 Blood Pressure 160/86 H 06/09/23 22:21 Pulse Oximetry 98 04/25/24 22:21 Temperature 36.4 C 06/09/23 22:21 Temperature Source Tympanic 06/09/23 22:21 Pulse 77 06/10/23 00:30 Pulse Rhythm Regular 06/10/23 00:30 Pulse Strength Normal 06/10/23 00:30 Respiratory Rate 15 06/10/23 00:30 Respiratory Effort Normal 06/10/23 00:30 Respiratory Depth Normal 06/10/23 00:30 Respiratory Pattern Normal 06/10/23 00:30 Blood Pressure 132/66 06/10/23 00:30 Blood Pressure Mean 88 06/10/23 00:30 Blood Pressure Position Sitting 06/10/23 00:30 Pulse Oximetry 94 06/10/23 00:30 Oxygen Delivery Method Room Air 06/10/23 00:30 Oxygen Flow Rate 0 06/10/23 00:30 Pain Level 3 06/10/23 00:30 Lab/Test Results Lab/Test Results: Laboratory Tests Range/Units 06/09/23 22:36 WBC (4.4-10.8) 10^3/uL 5.39 RBC (4.36-5.78) 10^6/uL 4.99 Hgb (13.5-17.5) g/dL 15.4 Hct (40.0-50.0) % 44.3 MCV (80-95) fL 89 MCH (27.0-33.0) pg 30.9 MCHC (32.0-36.0) % 34.8 RDW (11.8-14.1) % 11.6 L Plt Count (130-400) 10^3/uL 167 MPV (8.0-11.0) fL 10.6 Immature Gran % 0.2 Neutrophils % 56.2 Lymphocytes % 33.2 Monocytes % 7.8 Eosinophils % 2.0 Basophils % 0.6 Nucleated RBC % (0.0-0.3) % 0.0 Absolute Neutrophils (1.2-6.7) 10^3/uL 3.03 Absolute Lymphocytes (1.2-3.4) 10^3/uL 1.79 Absolute Monocytes (0.1-0.8) 10^3/uL 0.42 Absolute Eosinophils (0.0-0.7) 10^3/uL 0.11 Absolute Basophils (0.0-0.2) 10^3/uL 0.03 Sodium (136-145) mmol/L 143 Potassium (3.5-5.1) mmol/L 3.4 L Chloride (98-107) mmol/L 105 Carbon Dioxide (21.0-32.0) mmol/L 25.0 Anion Gap (3-11) mmol/L 13.0 H BUN (7-18) mg/dL 15 Creatinine (0.70-1.30) mg/dL 1.1 Est GFR (CKD-EPI 2020) (mL/min/1.73m2) 83.32 Glucose (74-106) mg/dL 259 H Calcium (8.5-10.1) mg/dL 8.4 L Magnesium (1.8-2.4) mg/dL 2.0 Total Bilirubin (0.2-1.0) mg/dL 1.0 AST (15-37) U/L 14 L ALT (16-63) U/L 33 Alkaline Phosphatase (46-116) U/L 113 Troponin I (< or =60) ng/L < 50 Total Protein (6.4-8.2) g/dL 7.2 Albumin (3.4-5.0) g/dL 4.0 Medical Decision Making The patient was seen and examined. He is in no distress and has normal vital signs here in the emergency room. The patient had an EKG which had some globally diminished repolarization, but nothing that would be consistent with pattern injury ischemia. The patient's initial troponin here was negative for elevation, and the remainder of his laboratory workup was essentially benign other than his elevated blood glucose level. The patient does have a history of gastroesophageal reflux disease and this could represent some decompensation that disease process. There is no focal inflammatory changes in his lungs or any evidence of liver or biliary tract dysfunction. The patient improved significantly with the medications that I provided here in the emergency department this evening. He will have a repeat troponin at a 3-hour interval and if this is negative he will be referred back to primary care with recommendation to consider increasing his GI regimen as needed for his symptoms. 0145 - The patient's repeat troponin was negative for elevation. Symptoms resolved with a combination of generalized pain relievers and medications specific for GERD. Quality:SDOH Health Related Social Needs: No Data to Display PFSH All Active Problems (Updated 06/10/23 @ 01:52 by Romario Acevedo MD) Chest pain (Acute) Essential hypertension (Acute) Type 2 diabetes mellitus with diabetic nephropathy (Acute) Degenerative joint disease of right knee (Chronic) Depo-Medrol injection: 03/26/2019 Synvis injections - Dr. Bangura Obesity (Chronic) History of lymph node excision (Acute) Lower respiratory infection (e.g., bronchitis, pneumonia, pneumonitis, pulmonitis) (Acute 11/04/15) Hyperlipidemia (Acute) Gastroesophageal reflux disease with esophagitis (Acute) Atypical chest pain (Acute 02/27/14) negative nuclear stress test (Sestamibi)/EF 49% Surgical History PROCEDURES EXCISE INGUINAL NODE right inguinal node bx Family History (Updated 12/24/19 @ 10:50 by Shiela James) Mother Alzheimer disease Father , age 71 Essential hypertension Heart disease Hyperlipidemia Cancer Depression Maternal Grandfather Cancer Hypertension Paternal Grandfather , age 58 Alcohol abuse Depression Diabetes Heart disease Maternal Grandmother , age 64 Diabetes Heart disease Hyperlipidemia Stroke Alcohol abuse Depression Social History (Updated 12/29/20 @ 15:53 by Noelle Vega) Smoking/Tobacco Use Status: Former Tobacco Use Tobacco: How many years used: 15 Second Hand Exposure: Yes Smoking risk assessment performed?: Yes Alcohol Intake: current Alcohol Intake frequency: 3 or more drinks per day Alcohol type: hard liquor Drug use: Daily Substance use type: marijuana Caregiver/Support person: No Household members: family Housing: house Communication Needs: None Do you need help understanding health information?: Rarely Pets and animals: Yes Pets and animals: cat(s) and dog(s) Sexually active: No Do you think of yourself as: straight/heterosexual Current gender identity: male What is your relationship status?: How often do you talk on the phone with friends or family?: twice per week How often do you get together with friends or relatives?: once per week How often do you attend voodoo or taoism services?: decline to answer Do you belong to any clubs or organized social groups?: no Panel score (0-1 are the most socially isolated patients): 2 What type of physical activity do you participate in: walking Duration: 30-45 minutes/day Frequency: 5-6 times per week Jazmine/Jehovah'S Witness: [employer]ist Special jazmine needs: No Seatbelt use: always Helmet use: No Drive intox or ride w/intox experienced truck driver: No Do you feel safe at home: Yes Do you feel safe in your relationship?: Yes PAWSS Have you Been Recently Intoxicated or Drunk Within the Last 30 days?: No Have you Ever Experienced Previous Episodes of Alcohol Withdrawal?: No Have you ever Experienced Withdrawal Seizures?: No Have you ever Experienced Delirium Tremens(DT)s?: No Have you ever undergone Alcohol Rehabilitation Treatment (i.e, inpt ot outpatient treatment programs)?: No Have you ever Experienced Blackouts?: No Have you ever Combined Alcohol with other Downers within the last 90 days?: No Have you ever Combined Alcohol with any other Substance of Abuse during the last 90 days?: No Positive Blood Alcohol level on Presentation? [PCS.BAL]: No Evidence of Increased Autonomic Activity (i.e. HR>120, tremor, sweating, agitation, nausea)?: No Result: 0
[2023-06-10 01:33] LABS: Troponin I < 50 ng/L (< or =60)
== END 2023-06-10 02:00 | disposition home or self-care (01) ==
PROVIDERS: Emergency Provider Emergency Medicine Emergency Medical Services; PCP Physician Assistant
DX: R07.9 Chest pain, unspecified (principal); I10 Essential (primary) hypertension; E78.5 Hyperlipidemia, unspecified; K21.9 Gastro-esophageal reflux disease without esophagitis; E11.21 Type 2 diabetes mellitus with diabetic nephropathy; Z87.891 Personal history of nicotine dependence; Z79.84 Long term (current) use of oral hypoglycemic drugs; Z79.82 Long term (current) use of aspirin
CPT/HCPCS: 36415; 80053; 82962; 93005; 96374; 96375; 99285; 71046; 83735; 84484; 85025; 93010; 99284; J1885; J2270; J2470

== ENCOUNTER 2023-06-28 09:41 | Inpatient (IN) | payer MEDICARE, MEDICAID, SELFPAY ==
[2023-06-28] VITALS (27 sets, daily range): BP systolic 105–181; BP diastolic 54–104; PULSE 62–83; RESP 14–24; TEMP 36.1–36.7; O2SAT 92–100; BMI 34.9
--- NOTE | 2023-06-28 10:04 | W.ED.GENAD ---
Discharge Plan Disposition Patient Disposition: Admit to [facility] Condition: Stable Discharge Details Clinical Impression: Acute appendicitis Admit Date/Time: 06/28/23 13:24 Admit Provider: Starr Umaña Attending Provider: Starr Umaña Primary Care Provider: Dino Dee ED Provider: Sara Barbosa Discharge Data Discharge Date/Time-TO BE ENTERED AT DEPARTURE: 06/28/23 14:11 HPI General Mode of arrival: ambulatory. Date/Time Provider Initiated Documentation: 06/28/23 10:04. Limitations to Documentation: no limitations. Information obtained by: patient, RN notes reviewed and old records reviewed. HPI Narrative: 48-year-old male presents to the ER with a chief complaint of right lower quadrant abdominal pain which began last night at midnight. Denies any nausea vomiting diarrhea. He did eat breakfast this morning before 8 AM. He did take 2 of his medications at home prior to arrival. Sent here for evaluation for appendicitis. Past medical history includes type 2 diabetes, GERD, high cholesterol, hypertension. Denies any previous surgeries. He is alert and oriented x 4. Related Data Home Medications Medication Instructions Recorded Confirmed aspirin 81 mg tablet,delayed 81 mg PO DAILY #90 tab-caps 03/26/14 06/28/23 release (Aspir-) multivitamin-ferrous 1 tab PO DAILY 12/04/18 06/28/23 fumarate-folic acid 18 mg-400 mcg tablet (Centrum Complete) lancets 28 gauge #100 ea 01/23/19 06/28/23 Medial Offloader Brace #1 ea 04/09/19 06/28/23 blood-glucose meter (OneTouch #1 ea 11/22/19 06/28/23 Ultra2 Meter) lisinopril 20 mg tablet 20 mg PO DAILY #90 tab-caps 10/27/20 06/28/23 rosuvastatin 40 mg tablet (Crestor) 40 mg PO DAILY #90 tab-caps 10/27/20 06/28/23 semaglutide 14 mg tablet 14 mg PO DAILY #90 tabs 12/22/20 06/28/23 metformin 1,000 mg tablet 1,000 mg PO DAILY #90 tab-caps 12/24/20 06/28/23 blood sugar diagnostic (Blood #100 strips 03/24/21 06/28/23 Glucose Test strips) omeprazole 20 mg capsule,delayed 20 mg PO DAILY #90 tab-caps 03/24/21 06/28/23 release bupropion HCl 150 mg 24 hr tablet, 150 mg PO QAM #90 tabs 05/27/21 06/28/23 extended release dapagliflozin propanediol 10 mg 10 mg PO DAILY #90 tabs 09/03/21 06/28/23 tablet Previous Rx's Medication Instructions Recorded lancets 28 gauge #100 ea 01/23/19 Medial Offloader Brace #1 ea 04/09/19 blood-glucose meter (OneTouch #1 ea 11/22/19 Ultra2 Meter) lisinopril 20 mg tablet 20 mg PO DAILY #90 tab-caps 10/27/20 rosuvastatin 40 mg tablet (Crestor) 40 mg PO DAILY #90 tab-caps 10/27/20 semaglutide 14 mg tablet 14 mg PO DAILY #90 tabs 12/22/20 metformin 1,000 mg tablet 1,000 mg PO DAILY #90 tab-caps 12/24/20 blood sugar diagnostic (Blood #100 strips 03/24/21 Glucose Test strips) omeprazole 20 mg capsule,delayed 20 mg PO DAILY #90 tab-caps 03/24/21 release bupropion HCl 150 mg 24 hr tablet, 150 mg PO QAM #90 tabs 05/27/21 extended release dapagliflozin propanediol 10 mg 10 mg PO DAILY #90 tabs 09/03/21 tablet Allergies Allergy/AdvReac Type Severity Reaction Status Date / Time No Known Allergies Allergy Unverified 06/28/23 09:48 General Stated Complaint: Abd Prob LUKE: 3 Review of Systems All systems reviewed & are unremarkable except as noted in HPI and below Gastrointestinal Gastrointestinal: Reports as per HPI, Reports abdominal pain, Denies nausea and Denies vomiting Genitourinary Genitourinary: Denies dysuria Exam Narrative Exam Narrative: Constitutional: Alert and oriented x3. Appears stated age. Normal body habitus. Head: Normocephalic, no trauma. Eyes: Pupils PERRL, Red reflex noted, EOM's intact. Eyelids symmetrical without lesions, discharge, or swelling. ENT: Bilateral TM's WNL, External ear normal to inspection, no mastoid TTP, swelling, or erythema, Nasal turbinates WNL, no nasal discharge. Normal dentition, Posterior pharynx WNL, no exudate. Chest: RRR, Normal S1, S2, distal pulses intact. Resp: Lungs clear to auscultation bilaterally, no wheezes, rales, or rhonchi. Abdomen: Soft, non-distended, hypoactive bowel sounds all 4 quads. Right lower quadrant tenderness with palpation. Musculoskeletal: Normal gait, Moves all 4 extremities without difficulty. Skin: No suspicious rashes or lesions. Capillary refill less than 2 sec. Neurologic: Cranial nerves II-XII intact. Alert and oriented x 3. Motor: No deficits noted. Sensory: Intact bilaterally all 4 extremities. Hematologic/Lymphatic: No ecchymosis, no lymphadenopathy. Course Vital Signs Vital signs: Vital Signs Temperature 36.6 C 06/28/23 09:48 Pulse 83 06/28/23 09:48 Respiratory Rate 16 06/28/23 09:48 Blood Pressure 181/95 H 06/28/23 09:48 Pulse Oximetry 100 06/28/23 09:48 Temperature 36.6 C 06/28/23 09:48 Temperature Source Temporal Artery Scan 06/28/23 09:48 Pulse 83 06/28/23 09:48 Respiratory Rate 16 06/28/23 09:48 Respiratory Effort Normal, Non-Labored, Short of Breath 06/28/23 09:50 Blood Pressure 181/95 H 06/28/23 09:48 Blood Pressure Position Sitting 06/28/23 09:48 Pulse Oximetry 100 06/28/23 09:48 Oxygen Delivery Method Room Air 06/28/23 09:48 Oxygen Flow Rate 0 06/28/23 09:48 Pain Level 10 06/28/23 09:48 Medical Decision Making 48-year-old male presents to the ER with a chief complaint of right lower quadrant abdominal pain which began last night at midnight. Denies any nausea vomiting diarrhea. He did eat breakfast this morning before 8 AM. He did take 2 of his medications at home prior to arrival. Sent here for evaluation for appendicitis. Past medical history includes type 2 diabetes, GERD, high cholesterol, hypertension. Denies any previous surgeries. He is alert and oriented x 4. Abdominal pain workup ordered. Liter normal saline, 4 of Zofran ordered, 2 mg of morphine. CBC shows no leukocytosis, CMP shows a glucose of 338 magnesium 1.6 bilirubin 2.0. Lipase 46 urinalysis largely within normal limits except for 500 glucose. Discussed labs including glucose of 338 with patient he verbalized understanding. He did have a higher reading this morning. He does take metformin at home. Patient still states that his pain is 8 out of 10 and additional 2 mg of morphine ordered. Spoke with radiologist positive acute appendicitis. Surgery paged. Discussed n.p.o. status with patient he verbalized understanding. Spoke with Dr. Umaña who recommends Zosyn, patient made n.p.o. status ED admission orders placed at Dr. Umaña's request. Patient to be admitted for acute appendicitis. This text was generated using [email or web address] system, please disregard any oddities of phrase or misspellings. Medical Records Medical records reviewed: Yes I reviewed the patient's medical records. Imaging Data Radiologic Study: Imaging: CT Scan Radiologist's impression: FINDINGS: VISUALIZED LUNG BASES: No nodules nor pleural effusions evident. ABDOMEN: There is no ascites in the upper abdomen but there is small amount of ascites in the dependent aspect of the pelvis. LIVER: There are no focal hepatic lesions evident. No dilated intrahepatic ducts. GALLBLADDER/BILIARY: No obvious gallbladder pathology. CBD is not dilated. PANCREAS: No evidence of pancreatic mass nor dilatation of the pancreatic duct. SPLEEN: Spleen size upper normal. No intrasplenic lesions. Splenic and portal veins are patent. ADRENALS: There are no significant adrenal masses. KIDNEYS:No cysts evident. No solid renal masses. No calculi nor hydronephrosis.. ABDOMINAL AORTA: Abdominal aorta is not enlarged. LYMPH NODES:There is no retroperitoneal nor paraaortic adenopathy. ABDOMINAL WALL: No evidence of significant anterior abdominal wall nor inguinal hernia. GI: There is no evidence of bowel obstruction, free air, nor abscess. PELVIS: GI: The appendix is abnormal. It is uniformly thickened with diameter 14 mm. There is periappendiceal streaking in the small amount of periappendiceal fluid but no formed abscess. However, there is some fluid in the dependent aspect of the pelvis which is most probably related to the appendicitis. There is no calcified appendicular lith. No free air.No evidence of sigmoid diverticulitis. LYMPH NODES: There is no intrapelvic nor inguinal adenopathy. REPRODUCTIVE: Prostate calcified but not enlarged. Seminal vesicles unremarkable. URINARY BLADDER: Urinary bladder wall is uniformly thickened. Probably related to cystitis or outflow obstruction. There are no diverticuli. No focal masses. No radiopaque calculi evident in the urinary bladder lumen. OSSEOUS: No fractures and no significant osseous lesions. IMPRESSION: 1. Findings are consistent with acute appendicitis. Appendix is uniformly thickened to diameter of 14 mm. There is some surrounding fluid as well as fluid in the dependent aspect of the pelvis which is most probably related to the acute appendicitis. 2. No evidence of sigmoid diverticulitis. Called by myself to ER provider. Lab Data Lab results reviewed: Yes I reviewed the patient's lab results. Labs: Laboratory Tests Range/Units 06/28/23 06/28/23 10:25 11:25 WBC (4.4-10.8) 10^3/uL 8.48 RBC (4.36-5.78) 10^6/uL 5.16 Hgb (13.5-17.5) g/dL 15.9 Hct (40.0-50.0) % 45.0 MCV (80-95) fL 87 MCH (27.0-33.0) pg 30.8 MCHC (32.0-36.0) % 35.3 RDW (11.8-14.1) % 11.6 L Plt Count (130-400) 10^3/uL 161 MPV (8.0-11.0) fL 11.2 H Immature Gran % % 0.2 Neutrophils % % 73.3 Lymphocytes % % 15.6 Monocytes % % 9.1 Eosinophils % % 1.4 Basophils % % 0.4 Nucleated RBC % (0.0-0.3) % 0.0 Absolute Neutrophils (1.2-6.7) 10^3/uL 6.22 Absolute Lymphocytes (1.2-3.4) 10^3/uL 1.32 Absolute Monocytes (0.1-0.8) 10^3/uL 0.77 Absolute Eosinophils (0.0-0.7) 10^3/uL 0.12 Absolute Basophils (0.0-0.2) 10^3/uL 0.03 Sodium (136-145) mmol/L 136 Potassium (3.5-5.1) mmol/L 3.9 Chloride (98-107) mmol/L 100 Carbon Dioxide (21.0-32.0) mmol/L 27.9 Anion Gap (3-11) mmol/L 8.1 BUN (7-18) mg/dL 18 Creatinine (0.70-1.30) mg/dL 1.2 Est GFR (CKD-EPI 2020) (mL/min/1.73m2) 75.06 Glucose (74-106) mg/dL 338 H Calcium (8.5-10.1) mg/dL 8.7 Magnesium (1.8-2.4) mg/dL 1.6 L Total Bilirubin (0.2-1.0) mg/dL 2.0 H AST (15-37) U/L 15 ALT (16-63) U/L 35 Alkaline Phosphatase (46-116) U/L 126 H Troponin I (< or =60) ng/L < 50 Total Protein (6.4-8.2) g/dL 7.5 Albumin (3.4-5.0) g/dL 3.9 Lipase (16-77) U/L 46 Urine Color (Yellow) Yellow Urine Clarity (Clear) Clear Urine pH (5-8) 7.0 Ur Specific [place] (1.005-1.025) 1.020 Urine Protein (Neg-Trace) mg/dL Negative Urine Ketones (Negative) mg/dL Negative Urine Blood (Negative) Negative Urine Nitrite (Negative) Negative Urine Bilirubin (Negative) Negative Urine Urobilinogen (Up to 0.2) mg/dL 1.0 H Ur Leukocyte Esterase (Negative) Negative Urine Glucose (Negative) mg/dL 500 H Quality:SDOH Health Related Social Needs: No Data to Display PFSH All Active Problems (Updated 06/28/23 @ 13:26 by Sara Barbosa NP) Acute appendicitis (Acute) Chest pain (Acute) Essential hypertension (Acute) Type 2 diabetes mellitus with diabetic nephropathy (Acute) Degenerative joint disease of right knee (Chronic) Depo-Medrol injection: 03/26/2019 Synvisc injections - Dr. Bangura Obesity (Chronic) History of lymph node excision (Acute) Lower respiratory infection (e.g., bronchitis, pneumonia, pneumonitis, pulmonitis) (Acute 11/04/15) Hyperlipidemia (Acute) Gastroesophageal reflux disease with esophagitis (Acute) Atypical chest pain (Acute 02/27/14) negative nuclear stress test (Sestamibi)/EF 49% Surgical History PROCEDURES EXCISE INGUINAL NODE right inguinal node bx Family History Mother Alzheimer disease Father , age 71 Essential hypertension Heart disease Hyperlipidemia Cancer Depression Maternal Grandfather Cancer Hypertension Paternal Grandfather , age 58 Alcohol abuse Depression Diabetes Heart disease Maternal Grandmother , age 64 Diabetes Heart disease Hyperlipidemia Stroke Alcohol abuse Depression Social History Smoking/Tobacco Use Status: Former Tobacco Use Tobacco: How many years used: 15 Second Hand Exposure: Yes Smoking risk assessment performed?: Yes Alcohol Intake: current Alcohol Intake frequency: 3 or more drinks per day Alcohol type: hard liquor Drug use: Daily Substance use type: marijuana Caregiver/Support person: No Household members: family Housing: house Communication Needs: None Do you need help understanding health information?: Rarely Pets and animals: Yes Pets and animals: cat(s) and dog(s) Sexually active: No Do you think of yourself as: straight/heterosexual Current gender identity: male What is your relationship status?: How often do you talk on the phone with friends or family?: twice per week How often do you get together with friends or relatives?: once per week How often do you attend mandaeism or mormon services?: decline to answer Do you belong to any clubs or organized social groups?: no Panel score (0-1 are the most socially isolated patients): 2 What type of physical activity do you participate in: walking Duration: 30-45 minutes/day Frequency: 5-6 times per week Jazmine/Roman Catholic: Unitarian Universalist Special jazmine needs: No Seatbelt use: always Helmet use: No Drive intox or ride w/intox catshovel driver: No Do you feel safe at home: Yes Do you feel safe in your relationship?: Yes
[2023-06-28 10:31] LABS: Abs Immature Grans 0.02 10^3/uL (0.0-0.06); Absolute Basophil Count 0.03 10^3/uL (0.0-0.2); Absolute Eosinophil Count 0.12 10^3/uL (0.0-0.7); Absolute Lymphocyte Count 1.32 10^3/uL (1.2-3.4); Absolute Monocyte Count 0.77 10^3/uL (0.1-0.8); Absolute Neutrophil Count 6.22 10^3/uL (1.2-6.7); Basophils % 0.4 %; Eosinophils % 1.4 %; HGB 15.9 g/dL (13.5-17.5); Immature Grans % 0.2 %; Lymphocytes % 15.6 %; MCH 30.8 pg (27.0-33.0); MCHC 35.3 % (32.0-36.0); MCV 87 fL (80-95); MPV 11.2 fL (8.0-11.0); Monocytes % 9.1 %; Neutrophils % 73.3 %; Platelet Count 161 10^3/uL (130-400); RBC 5.16 10^6/uL (4.36-5.78); RDW 11.6 % (11.8-14.1); RDW-SD 36.6 fL; WBC 8.48 10^3/uL (4.4-10.8)
[2023-06-28] MEDS: MORPHine 10 MG/ML VIAL 2 MG IVP ×2 (10:36→12:55)
[2023-06-28] MEDS: Ondansetron 4 MG/2 ML VIAL IVP (10:36)
[2023-06-28] MEDS: Normal Saline 1,000 ML 1000 ML IV (10:37)
[2023-06-28 10:51] LABS: ALT 35 U/L (16-63); AST 15 U/L (15-37); Albumin 3.9 g/dL (3.4-5.0); Alkaline Phosphatase 126 U/L (46-116); Anion Gap 8.1 mmol/L (3-11); BUN 18 mg/dL (7-18); CO2 27.9 mmol/L (21.0-32.0); CREATININE 1.2 mg/dL (0.70-1.30); Calcium 8.7 mg/dL (8.5-10.1); Chloride 100 mmol/L (98-107); Estimated GFR 75.06 (mL/min/1.73m2); Glucose 338 mg/dL (74-106); Lipase 46 U/L (16-77); Magnesium 1.6 mg/dL (1.8-2.4); Potassium 3.9 mmol/L (3.5-5.1); Sodium 136 mmol/L (136-145); Total Protein 7.5 g/dL (6.4-8.2); Troponin I < 50 ng/L (< or =60)
[2023-06-28 11:33] LABS: Bilirubin Negative (Negative); Blood Negative (Negative); Clarity Clear (Clear); Glucose 500 mg/dL (Negative); Ketones Negative (Negative); Leukocyte Esterase Negative (Negative); Nitrite Negative (Negative)
[2023-06-28] MEDS: Omnipaque 350 MG/ML 100 ML BTL IJ (11:59)
[2023-06-28] MEDS: Normal Saline - Diluent 50 ML VIAL IJ (12:00)
--- NOTE | 2023-06-28 12:01 | DI.CT_ITS ---
Exam(s) CT ABDOMEN PELVIS W EXAM: CT ABDOMEN PELVIS W CLINICAL HISTORY: RLQ abd Pain. TECHNIQUE: Imaging Protocol: Axial computed tomography images with coronal and sagittal reformatted images were created and reviewed CONTRAST MATERIAL: Intravenous: Omnipaque-350 100cc Oral: None COMPARISON: CT UPPER ABD W/WO CONTRAST(P) from 08/09/2016 FINDINGS: VISUALIZED LUNG BASES: No nodules nor pleural effusions evident. ABDOMEN: There is no ascites in the upper abdomen but there is small amount of ascites in the dependent aspect of the pelvis. LIVER: There are no focal hepatic lesions evident. No dilated intrahepatic ducts. GALLBLADDER/BILIARY: No obvious gallbladder pathology. CBD is not dilated. PANCREAS: No evidence of pancreatic mass nor dilatation of the pancreatic duct. SPLEEN: Spleen size upper normal. No intrasplenic lesions. Splenic and portal veins are patent. ADRENALS: There are no significant adrenal masses. KIDNEYS:No cysts evident. No solid renal masses. No calculi nor hydronephrosis.. ABDOMINAL AORTA: Abdominal aorta is not enlarged. LYMPH NODES:There is no retroperitoneal nor paraaortic adenopathy. ABDOMINAL WALL: No evidence of significant anterior abdominal wall nor inguinal hernia. GI: There is no evidence of bowel obstruction, free air, nor abscess. PELVIS: GI: The appendix is abnormal. It is uniformly thickened with diameter 14 mm. There is periappendice al streaking in the small amount of periappendiceal fluid but no formed abscess. However, there is s ome fluid in the dependent aspect of the pelvis which is most probably related to the appendicitis. There is no calcified appendicular lith. No free air.No evidence of sigmoid diverticulitis. LYMPH NODES: There is no intrapelvic nor inguinal adenopathy. REPRODUCTIVE: Prostate calcified but not enlarged. Seminal vesicles unremarkable. URINARY BLADDER: Urinary bladder wall is uniformly thickened. Probably related to cystitis or outflo w obstruction. There are no diverticuli. No focal masses. No radiopaque calculi evident in the uri nary bladder lumen. OSSEOUS: No fractures and no significant osseous lesions. IMPRESSION: 1. Findings are consistent with acute appendicitis. Appendix is uniformly thickened to diameter of 1 4 mm. There is some surrounding fluid as well as fluid in the dependent aspect of the pelvis which i s most probably related to the acute appendicitis. 2. No evidence of sigmoid diverticulitis. Called by myself to ER provider. RADIATION DOSE DELIVERED: 1,634.72mGy.cm Total DLP DATA REPOSITORY: All CT scans at this facility are submitted to the National Radiology Data Registry (NRDR) Dose Index Registry (DIR) with the [employer] (ACR). RADIATION OPTIMIZATION: All CT scans at this facility use at least one of these dose optimization te chniques: automated exposure control; mA and/or kV adjustment per patient size (includes targeted exa ms where dose is matched to clinical indication); or iterative reconstruction.
[2023-06-28] MEDS: PIPERACILLIN/TAZO 3.375 GM in Normal Saline 50 ML IVPB ×3 (13:48→21:57)
--- NOTE | 2023-06-28 14:57 | W.PM.HP.N ---
Date of service: 06/28/23 Time of Service: 14:57 Assessment and Plan Assessment and plan (1) Acute appendicitis: Status: Acute Assessment and plan: 48 y/o male with a 14 hour history of RLQ pain that is not associated with nausea or vomiting. CT was remarkable for acute appendicitis. Continue NPO Pain control He received Zosyn in the ER Discussed the procedure of laproscopic appendectomy, the benefits and potential risks to include bleeding, injury to the bowel and risk of abscess formation post-op. All questions were answered to patient satisfaction. P// Laproscopic Appendectomy. Pt seen adn examined. agree w/ above no hernias ASA daily. DM- 210 meds reviewed re-dose zosyn d/c home in am Informed consent is obtained for the procedural (explained in simple layman's terms that the pt and/or family could understand) explaining risks vs benefits and alternatives to the procedure and consequences if we do not do the procedure. Risks include but are not limited to: bleeding, infections, pneumonia, blood clots/DVT/PE, anesthesia (aspiration, damage to teeth/airway/ID/CVA//prolonged mechanical ventilation/PTX/IV infections), damage to bowel, bladder, blood vessels. Damage to solid organs requiring removal. Leakage from anastomosis requiring colostomy/ Wound infections requiring further surgery. ?Scarring and disfigurement. Subsequent bowel obstructions from scar tissue.? Chronic pain or numbness from the incision, or hernia. Possible open procedure if minimally invasive procedure is being attempted. History of Present Illness Narrative: 48 y/o amle with a history of HTN, obesity, type 2 DM and GERD presented to the ER with complaints of RLQ pain since midnight. He was able to eat breakfast however has not had anything else by mouth since that time. CT scan demonstrated Acute appendicitis. Of note the patient was seen in the ER on 06/10/23 for complaints of chest pain. Cardiac work up was unremarkable. His symptoms resolved with generalized pain relievers and medications specific for GERD. Denies palpitations, dyspnea or dyspnea with exertion. Denies personal or family history of adverse reactions to anesthesia. Denies any history of ID, stroke, seizures, bleeding or clotting disorders. Denies having any implanted metal. Denies any history of chemotherapy or radiation. Patient denies any history of abdominal surgical procedures. PFSH All Active Problems (Updated 06/28/23 @ 13:26 by Sara Barbosa NP) Acute appendicitis (Acute) Chest pain (Acute) Essential hypertension (Acute) Type 2 diabetes mellitus with diabetic nephropathy (Acute) Degenerative joint disease of right knee (Chronic) Depo-Medrol injection: 03/26/2019 Synvis injections - Dr. Bangura Obesity (Chronic) History of lymph node excision (Acute) Lower respiratory infection (e.g., bronchitis, pneumonia, pneumonitis, pulmonitis) (Acute 11/04/15) Hyperlipidemia (Acute) Gastroesophageal reflux disease with esophagitis (Acute) Atypical chest pain (Acute 02/27/14) negative nuclear stress test (Sestamibi)/EF 49% Surgical History PROCEDURES EXCISE INGUINAL NODE right inguinal node bx Family History Mother Alzheimer disease Father , age 71 Essential hypertension Heart disease Hyperlipidemia Cancer Depression Maternal Grandfather Cancer Hypertension Paternal Grandfather , age 58 Alcohol abuse Depression Diabetes Heart disease Maternal Grandmother , age 64 Diabetes Heart disease Hyperlipidemia Stroke Alcohol abuse Depression Social History Smoking/Tobacco Use Status: Former Tobacco Use Tobacco: How many years used: 15 Second Hand Exposure: Yes Smoking risk assessment performed?: Yes Alcohol Intake: current Alcohol Intake frequency: 3 or more drinks per day Alcohol type: hard liquor Drug use: Daily Substance use type: marijuana Caregiver/Support person: No Household members: family Housing: house Communication Needs: None Do you need help understanding health information?: Rarely Pets and animals: Yes Pets and animals: cat(s) and dog(s) Sexually active: No Do you think of yourself as: straight/heterosexual Current gender identity: male What is your relationship status?: How often do you talk on the phone with friends or family?: twice per week How often do you get together with friends or relatives?: once per week How often do you attend druze or mormon services?: decline to answer Do you belong to any clubs or organized social groups?: no Panel score (0-1 are the most socially isolated patients): 2 What type of physical activity do you participate in: walking Duration: 30-45 minutes/day Frequency: 5-6 times per week Jazmine/Zoroastrianism: Unitarian Universalist Special jazmine needs: No Seatbelt use: always Helmet use: No Drive intox or ride w/intox road train driver: No Do you feel safe at home: Yes Do you feel safe in your relationship?: Yes Meds Allergies and Home Medications Allergies Allergy/AdvReac Type Severity Reaction Status Date / Time No Known Allergies Allergy Unverified 06/28/23 09:48 Home Medications Medication Instructions Recorded Confirmed Type aspirin 81 mg tablet,delayed 81 mg PO DAILY #90 tab-caps 03/26/14 06/28/23 History release (Aspir-) multivitamin-ferrous 1 tab PO DAILY 12/04/18 06/28/23 History fumarate-folic acid 18 mg-400 mcg tablet (Centrum Complete) lancets 28 gauge #100 ea 01/23/19 06/28/23 Rx Medial Offloader Brace #1 ea 04/09/19 06/28/23 Rx blood-glucose meter (OneTouch #1 ea 11/22/19 06/28/23 Rx Ultra2 Meter) lisinopril 20 mg tablet 20 mg PO DAILY #90 tab-caps 10/27/20 06/28/23 Rx rosuvastatin 40 mg tablet (Crestor) 40 mg PO DAILY #90 tab-caps 10/27/20 06/28/23 Rx semaglutide 14 mg tablet 14 mg PO DAILY #90 tabs 12/22/20 06/28/23 Rx metformin 1,000 mg tablet 1,000 mg PO DAILY #90 tab-caps 12/24/20 06/28/23 Rx blood sugar diagnostic (Blood #100 strips 03/24/21 06/28/23 Rx Glucose Test strips) omeprazole 20 mg capsule,delayed 20 mg PO DAILY #90 tab-caps 03/24/21 06/28/23 Rx release bupropion HCl 150 mg 24 hr tablet, 150 mg PO QAM #90 tabs 05/27/21 06/28/23 Rx extended release dapagliflozin propanediol 10 mg 10 mg PO DAILY #90 tabs 09/03/21 06/28/23 Rx tablet Exam Const General: cooperative, healthy appearing and no acute distress Orientation: alert and oriented x3 HENMT Head: normal to inspection, no abrasions and no raccoon eyes Ears: hearing grossly normal bilaterally General nose exam: external nose normal and no nasal discharge noted Resp Effort & Inspection: normal respiratory effort, no audible wheezes and no cough Auscultation: clear to auscultation bilaterally Cardio Jugular venous pressure: no JVD Rate: regular rate Rhythm: regular rhythm Heart Sounds: S1 normal, S2 normal, no click and no murmurs GI Inspection: normal to inspection and non-distended Palpation: soft, guarding and tender (RLQ) Auscultation: normal bowel sounds Skin General skin exam: no rashes or lesions noted Neuro General: patient alert, patient oriented x3 and gait normal Cognition: normal cognition Speech: speech normal Results Labs 06/28/23 10:25 06/28/23 10:25 Labs: Laboratory Results - last 24 hr 06/28/23 06/28/23 10:25 11:25 WBC 8.48 RBC 5.16 Hgb 15.9 Hct 45.0 MCV 87 MCH 30.8 MCHC 35.3 RDW 11.6 L Plt Count 161 MPV 11.2 H Immature Gran % 0.2 Neutrophils % 73.3 Lymphocytes % 15.6 Monocytes % 9.1 Eosinophils % 1.4 Basophils % 0.4 Nucleated RBC % 0.0 Absolute Neutrophils 6.22 Absolute Lymphocytes 1.32 Absolute Monocytes 0.77 Absolute Eosinophils 0.12 Absolute Basophils 0.03 Sodium 136 Potassium 3.9 Chloride 100 Carbon Dioxide 27.9 Anion Gap 8.1 BUN 18 Creatinine 1.2 Est GFR (CKD-EPI 2020) 75.06 Glucose 338 H Calcium 8.7 Magnesium 1.6 L Total Bilirubin 2.0 H AST 15 ALT 35 Alkaline Phosphatase 126 H Troponin I < 50 Total Protein 7.5 Albumin 3.9 Lipase 46 Urine Color Yellow Urine Clarity Clear Urine pH 7.0 Ur Specific [place] 1.020 Urine Protein Negative Urine Ketones Negative Urine Blood Negative Urine Nitrite Negative Urine Bilirubin Negative Urine Urobilinogen 1.0 H Ur Leukocyte Esterase Negative Urine Glucose 500 H Last Vital Signs Temp 36.3 C L 06/28/23 14:16 Pulse 70 06/28/23 14:16 Resp 20 06/28/23 14:16 BP 129/91 H 06/28/23 14:16 Pulse Ox 96 06/28/23 14:16 Time Spent Time spent with Patient: <40 minutes Time was spent: preparing to see the patient(eg.review tests), obtaining and/or reviewing separately otained hiistory, ordering medications,tests, procedures, referring, communicating with other health health care liaison, indepentently interpreting results, counseling the patient and care coordination
[2023-06-28] MEDS: MORPHine 2 MG/ML SYR IVP (15:39)
[2023-06-28] MEDS: ACETAMINOPHEN 1,000 MG/100 ML BTL 400 MG IVPB (15:39)
[2023-06-28] MEDS: Normal Saline Flush 10 ML SYR IVP (15:40)
[2023-06-28] MEDS: Gabapentin 300 MG CAP 600 MG PO (16:19)
--- NOTE | 2023-06-28 17:25 | ANES.PREOP_ITS ---
General Info Date of Service Date Performed: 06/28/23 Height: 6 ft 1 in Weight: 120.202 kg Body Mass Index (BMI): 34.9 Surgical Procedure: Operation Date: 06/28/23 14:40 Proposed Procedure Side Surgeon p Appendectomy Laparoscopic Starr Umaña DO Actual Procedure Side Surgeon p Appendectomy Laparoscopic Starr Umaña, Pre-Op Diagnosis Post-Op Diagnosis Acute appendicitis: Acute appendicitis: Meds Allergies and Home Medications Allergies Allergy/AdvReac Type Severity Reaction Status Date / Time No Known Allergies Allergy Unverified 06/28/23 09:48 Home Medication Medication Instructions Recorded aspirin 81 mg tablet,delayed 81 mg PO DAILY #90 tab-caps 03/26/14 release (Aspir-) multivitamin-ferrous 1 tab PO DAILY 12/04/18 fumarate-folic acid 18 mg-400 mcg tablet (Centrum Complete) lancets 28 gauge #100 ea 01/23/19 Medial Offloader Brace #1 ea 04/09/19 blood-glucose meter (OneTouch #1 ea 11/22/19 Ultra2 Meter) lisinopril 20 mg tablet 20 mg PO DAILY #90 tab-caps 10/27/20 rosuvastatin 40 mg tablet (Crestor) 40 mg PO DAILY #90 tab-caps 10/27/20 semaglutide 14 mg tablet 14 mg PO DAILY #90 tabs 12/22/20 metformin 1,000 mg tablet 1,000 mg PO DAILY #90 tab-caps 12/24/20 blood sugar diagnostic (Blood #100 strips 03/24/21 Glucose Test strips) omeprazole 20 mg capsule,delayed 20 mg PO DAILY #90 tab-caps 03/24/21 release bupropion HCl 150 mg 24 hr tablet, 150 mg PO QAM #90 tabs 05/27/21 extended release dapagliflozin propanediol 10 mg 10 mg PO DAILY #90 tabs 09/03/21 tablet Current Visit Medications: Current Medications Generic Name Dose Route Start Last Admin Trade Name Freq PRN Reason Stop Dose Admin Ringer's Solution 1,000 mls @ 100 mls/hr 06/28/23 14:00 IV INFUSION GAVIN IV Miscellaneous Supplies 1 each 06/28/23 13:30 Iv Access-Emergency Dept IV DIRECTED GAVIN Morphine Sulfate 2 mg 06/28/23 15:07 06/28/23 15:39 Morphine 2 Mg/Ml Syr IVP 2 mg Q3H PRN PRN Administration Sodium Chloride 0 ml 06/28/23 13:24 06/28/23 15:40 Normal Saline Flush 10 Ml Syr IVP 20 ml PRN PRN Administration Sodium Chloride 0 ml 06/28/23 20:00 Normal Saline Flush 10 Ml Syr IVP BID GAVIN Sodium Chloride 0 ml 06/28/23 13:24 Normal Saline 10 Ml Vial IJ DIRECTED PRN PFSH Active Problems Active Problems: Problem Status Onset Code Acute appendicitis K35.80 Chest pain R07.9 Essential hypertension I10 Type 2 diabetes mellitus with diabetic nephropathy E11.21 Degenerative joint disease of right knee M17.11 Obesity E66.9 History of lymph node excision Z98.890 Lower respiratory infection (e.g., bronchitis, pneumonia, pneumonitis, pulmonitis) 11/04/15 J22 Hyperlipidemia E78.5 Gastroesophageal reflux disease with esophagitis K21.0 Atypical chest pain 02/27/14 R07.89 Surgical History Surgical History PROCEDURES EXCISE INGUINAL NODE right inguinal node bx Tobacco Smoking/Tobacco Use Status: Former Tobacco Use Passive smoking exposure: Yes Second hand exposure: Yes Alcohol Alcohol Intake: current Alcohol intake frequency: 3 or more drinks per day Alcohol type: hard liquor Substance Use Substance use: Daily Substance use type: marijuana Vital Signs and Lab Results Vital Signs Most Recent Vital Signs in EMR: Most Recent Vital Signs Temp Pulse Resp BP Pulse Ox 36.3 C L 70 20 129/91 H 96 06/28/23 14:16 06/28/23 14:16 06/28/23 14:16 06/28/23 14:16 06/28/23 14:16 Point of Care Results Point of Care Results: Finger Stick Blood Glucose 210 06/28/23 14:46 Lab Results 06/28/23 10:25 06/28/23 10:25 Blood Type / Crossmatch: 2 No Data to Display Complete Blood Count: 2 White Blood Count 8.48 10^3/uL (4.4-10.8) 06/28/23 10:25 Red Blood Count 5.16 10^6/uL (4.36-5.78) 06/28/23 10:25 Hemoglobin 15.9 g/dL (13.5-17.5) 06/28/23 10:25 Hematocrit 45.0 % (40.0-50.0) 06/28/23 10:25 Platelet Count 161 10^3/uL (130-400) 06/28/23 10:25 Complete Metabolic Panel: 2 Sodium 136 mmol/L (136-145) 06/28/23 10:25 Potassium 3.9 mmol/L (3.5-5.1) 06/28/23 10:25 Chloride 100 mmol/L (98-107) 06/28/23 10:25 Carbon Dioxide 27.9 mmol/L (21.0-32.0) 06/28/23 10:25 BUN 18 mg/dL (7-18) 06/28/23 10:25 Creatinine 1.2 mg/dL (0.70-1.30) 06/28/23 10:25 Est GFR (CKD-EPI 2020) 75.06 (mL/min/1.73m2) 06/28/23 10:25 Magnesium 1.6 mg/dL (1.8-2.4) L 06/28/23 10:25 Calcium 8.7 mg/dL (8.5-10.1) 06/28/23 10:25 Albumin 3.9 g/dL (3.4-5.0) 06/28/23 10:25 Glucose 338 mg/dL (74-106) H 06/28/23 10:25 Liver Function Panel: 2 Alanine Aminotransferase (ALT/SGPT) 35 U/L (16-63) 06/28/23 10: 25 Aspartate Amino Transf (AST/SGOT) 15 U/L (15-37) 06/28/23 10:25 Coagulation Panel: 2 No Data to Display Cardiac Panel: 2 Troponin I < 50 ng/L (< or =60) 06/28/23 Arterial Blood Gas: 2 No Data to Display Venous Blood Gas: 2 No Data to Display Pancreas Panel: 2 Lipase 46 U/L (16-77) 06/28/23 10:25 Thyroid Panel: 2 No Data to Display Infectious Disease: 2 No Data to Display Blood Cultures: 2 No Data to Display Toxicology Panel: 2 No Data to Display Imaging and Studies Imaging and Studies Study information below may be from another EMR and interpreted by another provider. Please see original notes in EMR for more complete details. EKG Summary: EKG PATIENT NAME: Erick Palmer JR UNIT #: [id number] ORDERING PROVIDER: Romario Acevedo M.D. PRIMARY CARE PROVIDER: ALEX BOWEN DATE/TIME OF SERVICE: 06/09/232221 : 1975 PERFORMING LOCATION: ER APPROVED REPORT Exam: Resting ECG Reason for Exam: chest pain Patient Location: E HR:70 bpm ECG Measurements Heart Rate 70 AXIS LA 199 P 68 QRSd 104 QRS 56 QT 417 T31 QTc 451 Conclusion Sinus rhythm...normal P axis, V-rate 60- 99 - <Electronically signed by Romario Acevedo M.D. in OV> E-Sign Date: 06/10/23 E-Sign Time: 0029 ADDENDUM APPROVED REPORT Exam: Resting ECG Reason for Exam: chest pain Patient Location: E HR:70 bpm ECG Measurements Heart Rate 70 AXIS LA 199 P 68 QRSd 104 QRS 56 QT 417 T31 QTc 451 Conclusion Sinus rhythm...normal P axis, V-rate 60- 99 I have reviewed and interpreted ECG and agree with software generated interpretation. Electronically signed by: <Electronically signed by Sandra Shirley M.D. in [place]> 06/10/23 0810 Cosigned by: Stress Test Summary: Patient Name: ERICK PALMER JR Unit #: [id number] Loc: DI Ordering Provider: ELIZABETH PICHARDO M.D. Status: REG I Primary Care Provider: ELIZABETH PICHARDO M.D. Date of Exam: 02/25/14 Sex: M : 1975 Age: 38 Exam(s) [id number] NM:MPI Resting & Stress GRP Reason for exam: 786.50 CHEST PAIN Medical History: Comment: SYMPTOMS/DIAGNOSIS: CHEST PAIN Department of Nuclear Medicine SPECT Nuclear Cardiology Report Prior: Exercise: X Lexiscan: Dose: 0.4mgm - REST: 11.3 mCi [id number]-Pitgugzts IV was administered at 9:40 AM on 02/25/14 in accordance with established rest protocol procedures. Images of the heart were obtained with SPECT reconstruction. STRESS: 34.3 mCi 76c-[id number]-Rzxdzkbml IV was administered at 10:55 AM on 02/25/14 in accordance with established stress protocol procedures. Images of the heart were obtained with SPECT reconstruction. - INTERPRETATION: View Normal Transient Mixed Fixed Perfusion Defect Defect Defect Short Narka X - Vertical Long Narka X - Horizontal Long Narka X - Low dose, non-diagnostic CT used for attenuation correction only. EJECTION FRACTION: WNL 49% EDV: 99 ml ESV: 51 ml GATED WALL MOTION: X NORMAL OTHER (DESCRIBE) CONCLUSION: No evidence of ischemia. TECH: BC CC: ELIZABETH PICHARDO MD Dictated By: GURPREET MATT M.D. [id number] <Electronically signed by GURPREET JARAMILLO M.D.> 02/27/14 1503 <Electronically signed by ROBERTA MATT M.D.> 04/15/14 1020 Transcribed By: JaylanMarie bauer 02/26/14 1117 This is privileged, confidential information intended only for the provider named. Any use or distribution by any person other than this provider is strictly prohibited. If you receive this report in error, please notify us immediately at [phone] and return the original report to us at the address above. Thank-you. Echocardiogram Summary: Echocardiogram Report PATIENT NAME: ERICK PALMER JR UNIT #: [id number] ADMITTING PROVIDER: JAYDON SHORE,PhD,[place] PRIMARY CARE PROVIDER: ELIZABETH PICHARDO M.D. DATE OF SERVICE: 04/10/14 : 1975 April 10, 2014 OUTPATIENT ORDERING PHYSICIAN: Elizabeth Pichardo MD HEIGHT: 6 FT 1 IN WEIGHT: 287 LBS BSA: 2.5 BP: 130/86 STUDY INDICATIONS: Chest pain. EKG: Sinus rhythm. FINDINGS: LEFT VENTRICLE: Normal size. Normal wall thickness, normal systolic function. EF 55-60%. No regional wall motion abnormalities. RIGHT VENTRICLE: Normal size and function. AORTIC VALVE: Probably trileaflet. No stenosis or regurgitation. MITRAL VALVE: Structurally normal, no regurgitation or stenosis. TRICUSPID VALVE: Structurally normal. No significant regurgitation or stenosis. RSV/PA PRESSURE: Pulmonary artery pressure could not accurately be estimated. PULMONIC VALVE: Grossly normal. No regurgitation or stenosis. LEFT/RIGHT ATRIA: Within normal limits. DIASTOLIC INDICES: Normal diastolic function for age. GREAT VESSELS: Aorta normal size. IVC normal size, collapses less than 50% with inspiration. PERICARDIUM: No effusion. SUMMARY: Normal biventricular size and function. No significant valvular heart disease. MEASUREMENTS: LVESD 33 mm LVEDD 47 mm IVS 9 mm PW 9 mm Ascending Aorta 36 mm AO Root 31 mm Aortic Arch 33 AV AO Velocity LA LA Volume 22 RA 14 cm sq. Right atrial pressure AV-PK/MN LVOT size LVOT gradient Deceleration time 246 m/sec Isovolumic relaxation time E/A ratio 1.1 IVC collapses Partially. - Dictated by: JAYDON SHORE,PhD,L[place]ETTE Dictated:: 04/10/14 1121 <Electronically signed by Lisette Carrillo M.D.> 04/10/14 1205 Transcribed Date: 04/10/14 Transcribed Time: 1137 By: This is privileged, confidential information, intended only for the provider named. Any use or distribution by any person other than this provider is strictly prohibited. If you receive this report in error, please notify us immediately at [phone] and return the original report to us at the address above. Thank you. Anesthesia Assessment and Plan Anesthesia History Personal History: No History of Anesthesia Complications Family History: No Family History of Anesthesia Complications Exercise Tolerance Exercise Tolerance: Metabolic Equivalents>4 Pertinent Negatives Pertinent Negatives: No Symptoms of GERD, No Major Cardiovascular Symptoms or Complaints, No Major Pulmonary Symptoms or Complaints and No History of CVA/TIA Cardiac & Pulmonary Exam Cardiac Exam: Normal S1/S2 Heart Sounds Pulmonary Exam: Clear Bilateral Breath Sounds Implantable Cardiac Device Does patient have a Pacemaker or an ICD?: No Airway Exam Known Difficult Airway: No Mallampati Class: 2 Mouth Opening: Normal (> 3cm) Thyromental Distance: Greater than 3 cm Facial Hair: Full Alvarez Neck Range of Motion: Full ROM Neck Circumference: Normal Teeth Condition: Normal Dentition Tooth Numberin 1. Hole in tooth per patient ASA Classification ASA Score: ASA 2 Emergency Case?: No NPO Status NPO Status: NPO Clears >2 hours, Solids >8 hours Anesthesia Plan Resuscitation Status: Full Code Anesthesia Technique: General Anesthesia Airway Planned: Endotracheal Tube Monitors Used: Standard Monitors
[2023-06-28] MEDS: Normal Saline 1,000 ML 30 ML IV (17:41)
--- NOTE | 2023-06-28 18:25 | APP_PTH ---
PATIENT: Erick Palmer JR LOC: U#:[id number] AGE/SX: 48/M ROOM: [id number] RE06/28/[address]: Starr Umaña : 1975 BED: A DIS: 06/29/2023 SPEC #: [id number] RECD: 06/29/23 12:40 STATUS: SOUCandace REQ #: [id number] MARIBEL: 06/28/23 18:[address]: Starr Umaña DEPT: Surgical Specimen RECD BY: Joy Hunter ENTERED: 06/29/23 12:40 SP TYPE: Appendix OTHR DR: Dino Dee Tissues: 1 - APPENDIX NOT INCIDENTAL Procedures: GROSS AND MICRO LEVEL 3 Comments: [id number]
[2023-06-28] MEDS: Bupivacaine 0.25% Pres-Free W/EPI 30 ML VIAL (18:39)
--- NOTE | 2023-06-28 18:53 | W.PM.OP ---
Date of service: 06/28/23 Time of Service: 18:54 Operative Note Operative Note DATE OF PROCEDURE: 06/28/23 PRE-OP DIAGNOSIS: Acute appendicitis POST-OP DIAGNOSIS: other (Suppurative appendicitis) SURGEON: Starr Umaña [employer] CLERK: Allyssa Mullins ANESTHESIA TYPE: General LMA/ETT Refer to Anesthesia Record ESTIMATED BLOOD LOSS: 5 PATHOLOGY: other COMPLICATIONS: None Patient was transported to: PACU Patient's condition: stable Procedure Description: INDICATIONS: The patient has signs and symptoms compatible with acute appendicitis and is brought to the OR for laparoscopic appendectomy, possible open procedure. Informed consent is obtained for the procedural (explained in simple layman's terms that the pt and/or family could understand) explaining risks vs benefits and alternatives to the procedure and consequences if we do not do the procedure. Risks include but are not limited to:bleeding,infections, pneumonia, blood clots/DVT/PE, anesthesia(aspiration, damage to teeth/airway/[place]/CVA//prolonged mechanical ventilation/PTX/IV infections), damage to bowel, bladder,blood vessels, ureters. Damage to solid organs requiring removal. Infertility. Leakage from anastomosis requiring colostomy. Wound infections requirng further surgery. Scarring and disfigurement. Subsequent bowel obstructions from scar tissue. Possible open procedure if minimaly invsive procedure is being attempted. Abscess and stump appendicitis as well as others. DESCRIPTION OF PROCEDURE: The patient was brought to the operating room suite and placed in supine position. Anesthesia was administered per the Department of Anesthesia. A Swenson catheter and OG tube are placed. The patient was prepped and draped in the usual sterile fashion using ChloraPrep scrub solution. Pause for the cause was done. 30 mL of 1% buffered was used for local anesthetization. A stab incision was made in the umbilicus and the Veress was inserted. Drop test was positive and insufflation was begun. When 15 mm of pressure was noted on the monitor, the Veress was removed, a #5 port inserted. Camera inserted through the port shows no damage to underlying structures. Bowel, liver and stomach that are visualized are normal in appearance. The appendix is inflamed, erythematous,enlarged, & distened, but does not appear to have been ruptured. There is no purulent drainage in the pelvis. It is not adhered to any adjacent structures. The appendix does have a suppurative membrane. A 12 mm port was then placed in the suprapubic position under direct visualization following creation of a local field block as well as a second 5 mm port in the LLQ. The appendix is elevated and a rent dissected into the mesentery. The base of the appendix is healthy and will hold sil. A Endo-JEAN PIERRE stapler is placed across the base of the appendix and fired and 2nd stapler placed across the mesentery and fired. The appendix is placed in a bag and brought out. There is no bleeding or enteric leakage from the staple lines. The pt does not require a drain. The abdomen was copiously irrigated with a liter of saline. All saline is evacuated. The scope and ports are removed. Pneumoperitoneum is evacuated. The fascia under the 12 mm port is closed with 0 Vicryl. There was no bleeding from the port sites as when they removed and the pneumoperitoneum evacuated. The wounds were copiously irrigated and closed in 2 layers with 4-0 Monocryl.? Skin glue is used.? Sterile dressings are applied. The patient tolerated the procedure without complication, transferred to the recovery room in stable condition. Family was apprised of patient condition. The patient can be discharged home in am
[2023-06-28] MEDS: LORazepam 2 MG/ML VIAL (19:07)
--- NOTE | 2023-06-28 19:45 | W.ANESPOSTOP ---
Postoperative Evaluation Date, Time and Location Date Performed: 06/28/23 Time Performed: 19:45 Patient Location: PACU Vital Signs Most Recent Imported Vital Signs: Most Recent Vital Signs Temp Pulse Resp BP Pulse Ox 36.7 C 65 14 117/70 95 06/28/23 19:33 06/28/23 19:40 06/28/23 19:40 06/28/23 19:40 06/28/23 19:40 Pain Score Most Recent Pain Score: Most Recent Pain Score Pain Level 8 06/28/23 15:39 Assessment Mental Status: Awake (Alert & Oriented to Patient Baseline) Airway and Respiratory Function: Abnormal Respiratory exam (See explanation) (Patient desaturating while asleep, on O2 for the night, Dr. Umaña aware and will be placing orders for continuous SPO2 monitoring and titrateable O2.) and Patient has been admitted and is receiving care as an inpatient Cardiovascular Function: Hemodynamically Stable Hydration Status: Adequately Hydrated Nausea & Vomiting: No Nausea or Vomiting Pain: Pt. Denies Any Pain (Patient is denying pain at this time.) Peripheral Nerve Block: Patient did not receive a nerve block
[2023-06-28] MEDS: Ketorolac 15 MG/ML VIAL IVP (20:45)
[2023-06-28] MEDS: Acetaminophen 500 MG TAB 1000 MG PO (20:45)
[2023-06-28] MEDS: Lactated Ringers 1,000 ML 100 ML IV (20:46)
[2023-06-29 00:06] VITALS: BP 121/77; PULSE 72; RESP 18; O2SAT 99
[2023-06-29 01:07] VITALS: BP 120/61; PULSE 72; RESP 18; O2SAT 97
[2023-06-29] MEDS: PIPERACILLIN/TAZO 3.375 GM in Normal Saline 50 ML IVPB ×2 (02:10→08:33)
[2023-06-29] MEDS: Acetaminophen 500 MG TAB 1000 MG PO ×2 (02:11→08:22)
[2023-06-29] MEDS: Ketorolac 15 MG/ML VIAL IVP ×2 (02:11→08:22)
[2023-06-29 07:28] VITALS: BP 140/89; PULSE 70; RESP 18; TEMP 36.3; O2SAT 99
--- NOTE | 2023-06-29 07:35 | PGE_ITS ---
Date of Service Date of service: 06/29/23 Time of Service: 07:35 Assessment and Plan Assessment and plan (1) Acute appendicitis: Status: Acute Assessment and plan: POD #1 s/p laparoscopic Appendectomy Pain is well controlled Tolerating clear liquid diet, will advance to regular diet this morning Urinating without difficulty Independent with ambulation and activity within the room. Will d/c home later today after breakfast. Subjective Subjective Interval history since last seen: Arrive with the patient resting comfortably in bed. He describes some residual abdominal soreness, but otherwise is feeling well. He reports passing flatus a nd urine without difficulty. Denies any nausea or vomiting. Exam Const General: cooperative, healthy appearing and comfortable Orientation: alert and oriented x3 Resp Effort & Inspection: normal respiratory effort, no audible wheezes and no cough GI Inspection: normal to inspection Palpation: soft, no guarding and tender in the RLQ and suprapubicly Other: Incisions with skin a fix in place. Objective Last Vital Signs Temp 36.3 C L 06/29/23 07:28 Pulse 70 06/29/23 07:28 Resp 18 06/29/23 07:28 BP 140/89 06/29/23 07:28 Pulse Ox 99 06/29/23 07:28 Laboratory Results - last 24 hr 06/28/23 06/28/23 10:25 11:25 WBC 8.48 RBC 5.16 Hgb 15.9 Hct 45.0 MCV 87 MCH 30.8 MCHC 35.3 RDW 11.6 L Plt Count 161 MPV 11.2 H Immature Gran % 0.2 Neutrophils % 73.3 Lymphocytes % 15.6 Monocytes % 9.1 Eosinophils % 1.4 Basophils % 0.4 Nucleated RBC % 0.0 Absolute Neutrophils 6.22 Absolute Lymphocytes 1.32 Absolute Monocytes 0.77 Absolute Eosinophils 0.12 Absolute Basophils 0.03 Sodium 136 Potassium 3.9 Chloride 100 Carbon Dioxide 27.9 Anion Gap 8.1 BUN 18 Creatinine 1.2 Est GFR (CKD-EPI 2020) 75.06 Glucose 338 H Calcium 8.7 Magnesium 1.6 L Total Bilirubin 2.0 H AST 15 ALT 35 Alkaline Phosphatase 126 H Troponin I < 50 Total Protein 7.5 Albumin 3.9 Lipase 46 Urine Color Yellow Urine Clarity Clear Urine pH 7.0 Ur Specific [place] 1.020 Urine Protein Negative Urine Ketones Negative Urine Blood Negative Urine Nitrite Negative Urine Bilirubin Negative Urine Urobilinogen 1.0 H Ur Leukocyte Esterase Negative Urine Glucose 500 H Time Spent with Patient Time Spent with Patient: <25 minutes Time was spent: preparing to see the patient(eg.review tests), obtaining and/or reviewing separately otained hiistory and counseling the patient
--- NOTE | 2023-06-29 07:39 | W.PM.DS.N ---
Date of service: 06/29/23 Time of Service: 07:39 DS: Diagnosis Discharge Diagnosis (1) Acute appendicitis: Status: Acute Discharge Plan Disposition Patient Disposition: Home Condition: Good Discharge Details Reason For Visit: Acute Appendicitis Admit Date/Time: 06/28/23 13:24 Admit Provider: Starr Umaña Attending Provider: Starr Umaña Primary Care Provider: Dino Dee Hospital Course Hospital Course: 48 y/o male whom presented to the ER with complaints of RLQ pain for 14 hours. He was found to have appendicitis on CT scan. He under went a laparoscopic appendectomy and recieved zosyn. Post-operatively pain was well controlled and he tolerated diet which was advanced as tolerated. Elevated blood sugar levels during admission, he will also need to follow up with his PCP within the next week or 2, for diabetes management. D/C home Follow up in the surgical clinic in 2 weeks. Home Meds and New Rx's Prescriptions: Continued (DME) Medial Offloader Brace Qty: 1 0RF Rx Instructions: Please apply to RIGHT knee for medial OA and instability semaglutide 14 mg tablet 14 mg PO DAILY Qty: 90 4RF Rx Instructions: take one tablet daily metformin 1,000 mg tablet 1,000 mg PO DAILY Qty: 90 4RF Rx Instructions: decreased by pt/ NOT SENT (DME) Blood Glucose Test Strip 1 ea Miscellaneous DAILY Qty: 100 3RF Rx Instructions: FOR One Touch METER. Ultra Blue. PT DOES NOT USE INSULIN. E11.9E omeprazole 20 mg capsule,delayed release(DR/EC) 20 mg PO DAILY Qty: 90 3RF Centrum Complete 18-400 mg-mcg tablet 1 tab PO DAILY aspirin [Aspir-81] 81 MG tablet,delayed release (DR/EC) 81 mg PO DAILY Qty: 90 (DME) lancets 28 gauge misc 1 ea Miscellaneous DAILY Qty: 100 6RF Rx Instructions: FOR One Touch METER. NO INSULIN. DIAGNOSIS CODE E11.9 (DME) blood-glucose meter [OneTouch Ultra2 Meter] Misc 1 ea Miscellaneous DAILY Qty: 1 4RF Rx Instructions: Check blood sugar twice a day lisinopril 20 mg tablet 20 mg PO DAILY Qty: 90 4RF Rx Instructions: take one tablet daily rosuvastatin [Crestor] 40 mg tablet 40 mg PO DAILY Qty: 90 4RF bupropion HCl 150 mg tablet extended release 24 hr 150 mg PO QAM Qty: 90 1RF dapagliflozin propanediol 10 mg tablet 10 mg PO DAILY Qty: 90 1RF Discharge Instructions Instructions: Appendicitis (GEN), Diabetes and Nutrition (DC), Diabetes and Exercise (DC) Additional Instructions: No heavy lifting pushing or pulling. No strenuous bending or twisting. No swimming, soaking in bath tubs or hot tubs until the incision site is fully healed for this can significantly increase their risk of infection. Patient verbalized understanding of this. Take over the counter pain medicine for pain, soreness and swelling such as Tylenol (Do not exceed 4 grams/day), Ibuprofen (Do not exceed over 1200mg/day), Aleve or Motrin. Referrals: Allyssa Mullins PA [[facility]] - 07/14/23 8:45 am (2 week s/p Lap Appy f/u) Activity:: Modified activity Equipment/Supplies:: No Equipment Needed Diet:: Carb Counting Discharge Orders Discharge Orders: Discharge Order (Routine); Ordered 06/29/23 Ordered By: Allyssa Mullins DS: Summary Time Spent with Patient providing and/or coordinating discharge services: Less than 30 minutes Status at Discharge Functional status at discharge: independent ambulation Overall status at discharge: patient is back to baseline Mental Status: mental status grossly normal Speech and Movement: speech and movement normal Mood: congruent mood Affect: normal affect Quality:SDOH Health Related Social Needs: No Data to Display Exam Const General: cooperative, healthy appearing and comfortable Orientation: alert and oriented x3 Resp Effort & Inspection: normal respiratory effort, no audible wheezes and no cough GI Inspection: normal to inspection Palpation: soft, no guarding and tender in the RLQ and suprapubicly Other: Incisions with skin a fix in place. Psych Mental Status: mental status grossly normal Speech and Movement: speech and movement normal Mood: congruent mood Affect: normal affect DS: Data Vitals/I&O Vitals and I&O: Vital Signs Temperature 36.3 C L 06/29/23 07:28 Temperature Source Tympanic 06/29/23 07:28 Pulse 70 06/29/23 07:28 Pulse Rhythm Regular 06/28/23 23:03 Respiratory Rate 18 06/29/23 07:28 Respiratory Effort Normal, Non-Labored 06/28/23 23:03 Respiratory Depth Normal 06/28/23 23:03 Respiratory Pattern Normal 06/28/23 23:03 Blood Pressure 140/89 06/29/23 07:28 Blood Pressure Mean 119 06/28/23 13:52 Blood Pressure Position Supine 06/28/23 13:52 Pulse Oximetry 99 06/29/23 07:28 Respiratory End-tidal CO2 37 06/28/23 19:40 Oxygen Delivery Method Nasal Cannula 06/29/23 07:28 Oxygen Flow Rate 2.5 06/29/23 07:28 Pain Level 10 06/28/23 20:45 Intake & Output 06/28/23 06/29/23 06/29/23 18:59 06:59 18:59 Intake Total 1350 / 1744.5 394.5 / 1744.5 Output Total 600 / 600 Balance 750 / 1144.5 394.5 / 1144.5 Weight 120.202 kg 116.573 kg Intake: IV 1350 / 1744.5 394.5 / 1744.5 Output: Urine 600 / 600 Other: Urine Color Pale Yellow Yellow Urine Appearance Clear Clear Urine Odor Normal Comment patient voided in toilet pT states last up oob to use toliet approximatley 0100 Emesis Description None None Voiding Methods Toilet Data Completed and Pending Labs on day of discharge: Labs from last 24 hours 06/28/23 06/28/23 11:25 10:25 WBC 8.48 RBC 5.16 Hgb 15.9 Hct 45.0 MCV 87 MCH 30.8 MCHC 35.3 RDW 11.6 L Plt Count 161 MPV 11.2 H Immature Gran % 0.2 Neutrophils % 73.3 Lymphocytes % 15.6 Monocytes % 9.1 Eosinophils % 1.4 Basophils % 0.4 Nucleated RBC % 0.0 Absolute Neutrophils 6.22 Absolute Lymphocytes 1.32 Absolute Monocytes 0.77 Absolute Eosinophils 0.12 Absolute Basophils 0.03 Sodium 136 Potassium 3.9 Chloride 100 Carbon Dioxide 27.9 Anion Gap 8.1 BUN 18 Creatinine 1.2 Est GFR (CKD-EPI 2020) 75.06 Glucose 338 H Calcium 8.7 Magnesium 1.6 L Total Bilirubin 2.0 H AST 15 ALT 35 Alkaline Phosphatase 126 H Troponin I < 50 Total Protein 7.5 Albumin 3.9 Lipase 46 Urine Color Yellow Urine Clarity Clear Urine pH 7.0 Ur Specific [place] 1.020 Urine Protein Negative Urine Ketones Negative Urine Blood Negative Urine Nitrite Negative Urine Bilirubin Negative Urine Urobilinogen 1.0 H Ur Leukocyte Esterase Negative Urine Glucose 500 H PFSH All Active Problems (Updated 06/28/23 @ 13:26 by Sara Barbosa NP) Acute appendicitis (Acute) Chest pain (Acute) Essential hypertension (Acute) Type 2 diabetes mellitus with diabetic nephropathy (Acute) Degenerative joint disease of right knee (Chronic) Depo-Medrol injection: 03/26/2019 Synvisc injections - Dr. Bangura Obesity (Chronic) History of lymph node excision (Acute) Lower respiratory infection (e.g., bronchitis, pneumonia, pneumonitis, pulmonitis) (Acute 11/04/15) Hyperlipidemia (Acute) Gastroesophageal reflux disease with esophagitis (Acute) Atypical chest pain (Acute 02/27/14) negative nuclear stress test (Sestamibi)/EF 49% Surgical History PROCEDURES EXCISE INGUINAL NODE right inguinal node bx Family History Mother Alzheimer disease Father , age 71 Essential hypertension Heart disease Hyperlipidemia Cancer Depression Maternal Grandfather Cancer Hypertension Paternal Grandfather , age 58 Alcohol abuse Depression Diabetes Heart disease Maternal Grandmother , age 64 Diabetes Heart disease Hyperlipidemia Stroke Alcohol abuse Depression Social History Smoking/Tobacco Use Status: Former Tobacco Use Tobacco: How many years used: 15 Second Hand Exposure: Yes Smoking risk assessment performed?: Yes Alcohol Intake: current Alcohol Intake frequency: 3 or more drinks per day Alcohol type: hard liquor Drug use: Daily Substance use type: marijuana Caregiver/Support person: No Household members: family Housing: house Communication Needs: None Do you need help understanding health information?: Rarely Pets and animals: Yes Pets and animals: cat(s) and dog(s) Sexually active: No Do you think of yourself as: straight/heterosexual Current gender identity: male What is your relationship status?: How often do you talk on the phone with friends or family?: twice per week How often do you get together with friends or relatives?: once per week How often do you attend hinduism or protestant services?: decline to answer Do you belong to any clubs or organized social groups?: no Panel score (0-1 are the most socially isolated patients): 2 What type of physical activity do you participate in: walking Duration: 30-45 minutes/day Frequency: 5-6 times per week Jazmine/Yazidi: Unitarian Universalist Special jazmine needs: No Seatbelt use: always Helmet use: No Drive intox or ride w/intox route sales delivery driver: No Do you feel safe at home: Yes Do you feel safe in your relationship?: Yes Time Spent with Patient Time Spent with Patient: <45 minutes Time was spent: preparing to see the patient(eg.review tests), obtaining and/or reviewing separately otained hiistory and counseling the patient
[2023-06-29] MEDS: Multivitamin w/Minerals TAB 1 TAB PO (08:21)
[2023-06-29] MEDS: Normal Saline Flush 10 ML SYR IVP (08:21)
[2023-06-29] MEDS: Lisinopril 20 MG TAB PO (08:21)
[2023-06-29] MEDS: buPROPion-XL 150 MG TABCR PO (08:22)
[2023-06-29] MEDS: Insulin Aspart 300 UNITS/3 ML PEN SC ×2 (08:23→11:53)
[2023-06-29] MEDS: Polyethylene Glycol 3350 17 GM PACKET PO (13:42)
== END 2023-06-29 14:02 | disposition home or self-care (01) | DRG 399 ==
LOC: ER 13:44 → MS 14:05
PROVIDERS: Admitting Provider Surgery; Emergency Provider Registered Nurse Emergency; PCP Physician Assistant; Visit Provider Surgery
PROC: 0DTJ4ZZ Resection of Appendix, Percutaneous Endoscopic Approach (ICD-10-PCS; CPT 44970; principal; 2023-06-28 14:30)
DX: K35.80 Unspecified acute appendicitis (principal); I10 Essential (primary) hypertension; E11.21 Type 2 diabetes mellitus with diabetic nephropathy; E66.9 Obesity, unspecified; E78.5 Hyperlipidemia, unspecified; M17.11 Unilateral primary osteoarthritis, right knee
CPT/HCPCS: 44970; 36415; 80053; 83690; 96361; 96365; 96375; 96376; 99222; 99285; 74177; 81003; 83735; 84484; 85025; 88304; J0131; J1100; J1815; J1885; J2001; J2060; J2250; J2270; J2405; J2543; J2704; J3490

== ENCOUNTER → 2023-07-14 08:20 | Outpatient (BNVA) | payer MEDICARE, MEDICAID, SELFPAY | PROVIDERS: PCP Physician Assistant; Referring Provider Physician Assistant; Visit Provider Physical Therapy Assistant | DX: Z48.815 Encounter for surgical aftercare following surgery on the digestive system (principal) ==

== ENCOUNTER 2024-05-08 13:02 | Outpatient (REF) | payer MEDICARE, MEDICAID, SELFPAY ==
[2024-05-08 15:48] LABS: HCT 46.9 % (40.0-50.0); HGB 16.7 g/dL (13.5-17.5); MCH 30.7 pg (27.0-33.0); MCHC 35.6 % (32.0-36.0); MCV 86 fL (80-95); MPV 11.1 fL (8.0-11.0); Platelet Count 186 10^3/uL (130-400); RBC 5.44 10^6/uL (4.36-5.78); RDW 11.4 % (11.8-14.1); RDW-SD 35.8 fL; WBC 4.68 10^3/uL (4.4-10.8)
[2024-05-09 03:08] LABS: ALT 28 U/L (16-63); AST 18 U/L (15-37); Albumin 4.2 g/dL (3.4-5.0); Alkaline Phosphatase 127 U/L (46-116); Anion Gap 7.5 mmol/L (3-11); BUN 22 mg/dL (7-18); Bilirubin, Total 2.8 mg/dL (0.2-1.0); CO2 27.5 mmol/L (21.0-32.0); CREATININE 1.2 mg/dL (0.70-1.30); Calcium 8.9 mg/dL (8.5-10.1); Calculated LDL 61 mg/dL (<100); Chloride 103 mmol/L (98-107); Cholesterol 127 mg/dL (<200); Glucose 232 mg/dL (74-106); HDL Cholesterol 30 mg/dL (>or=40); Potassium 3.7 mmol/L (3.5-5.1); Sodium 138 mmol/L (136-145); Total Protein 7.2 g/dL (6.4-8.2); Triglyceride 184 mg/dL (<150)
[2024-05-09 03:18] LABS: Hemoglobin A1C 8.5 % (<5.7)
== END 2024-05-08 13:03 | disposition home or self-care (01) ==
LOC: NCHCN 13:02
PROVIDERS: PCP Physician Assistant; Visit Provider Physician Assistant
DX: K21.9 Gastro-esophageal reflux disease without esophagitis (principal); E11.9 Type 2 diabetes mellitus without complications
CPT/HCPCS: 80053; 80061; 85027; 83036

== ENCOUNTER 2024-07-03 13:16 | Outpatient (CLI) | payer MEDICARE, MEDICAID, SELFPAY ==
--- NOTE | 2024-07-03 13:19 | DI.RAD_ITS ---
Exam(s) XR THUMB RT EXAM: XR THUMB RT CLINICAL HISTORY: M79.644 Pain in rt finger,thumb. TECHNIQUE: 2D digital imaging was performed. Three views. COMPARISON: No exams were available for comparison FINDINGS: BONES: No acute fracture is present. No bony destructive lesion is seen. JOINTS: No dislocation present. No significant degenerative changes. SOFT TISSUE: Normal. IMPRESSION: No evidence of acute fracture, dislocation, or subluxation. DATA REPOSITORY: RADIATION DOSE DELIVERED:
== END 2024-07-03 13:36 ==
LOC: DI 13:16
PROVIDERS: PCP Physician Assistant; Visit Provider Nurse Practitioner Family
DX: M79.644 Pain in right finger(s) (principal)
CPT/HCPCS: 73140

== ENCOUNTER 2024-08-02 12:19 | Emergency (ER) | payer MEDICARE, MEDICAID, SELFPAY ==
[2024-08-02] VITALS (32 sets, daily range): BP systolic 113–157; BP diastolic 65–99; PULSE 72–88; RESP 10–25; TEMP 36.7–36.8; O2SAT 88–97
--- NOTE | 2024-08-02 12:15 | RT.EKG_ITS ---
APPROVED REPORT Exam: Resting ECG Reason for Exam: chest pain Patient Location: E HR:82 bpm ECG Measurements Heart Rate 82 AXIS NV 186 P 83 QRSd 106 QRS 53 QT 384 T 38 QTc 450 Conclusion Sinus rhythm...normal P axis, V-rate 60- 99 Physician: no stemi
--- NOTE | 2024-08-02 13:00 | DI.RAD_ITS ---
Exam(s) XR PORTABLE CHEST AP EXAM: XR PORTABLE CHEST AP CLINICAL HISTORY: chest discomfort TECHNIQUE: 2D digital imaging was performed of the chest. One image was obtained. An AP view was obtained. COMPARISON: CR,XR XR CHEST 2V PA LATERAL from 06/09/2023 FINDINGS: MEDIASTINUM: Normal. HEART: Normal. PULMONARY VASCULATURE: Normal. LUNGS: Clear. PLEURAL SPACE: No pleural effusion or pneumothorax. BONE:Within normal limits for the patient's age. OTHER FINDINGS:Normal. IMPRESSION: No acute pulmonary findings. DATA REPOSITORY: RADIATION DOSE DELIVERED:
[2024-08-02 13:17] LABS: Abs Immature Grans 0.01 10^3/uL (0.0-0.06); Absolute Basophil Count 0.02 10^3/uL (0.0-0.2); Absolute Monocyte Count 0.45 10^3/uL (0.1-0.8); Absolute Neutrophil Count 4.57 10^3/uL (1.2-6.7); Basophils % 0.3 %; Eosinophils % 1.6 %; HCT 45.7 % (40.0-50.0); HGB 15.9 g/dL (13.5-17.5); Immature Grans % 0.2 %; Lymphocytes % 20.2 %; MCH 30.3 pg (27.0-33.0); MCHC 34.8 % (32.0-36.0); MCV 87 fL (80-95); MPV 10.4 fL (8.0-11.0); Neutrophils % 70.7 %; Platelet Count 164 10^3/uL (130-400); RBC 5.24 10^6/uL (4.36-5.78); RDW 11.5 % (11.8-14.1); RDW-SD 36.5 fL; WBC 6.45 10^3/uL (4.4-10.8)
[2024-08-02 13:42] LABS: ALT 30 U/L (16-63); AST 13 U/L (15-37); Albumin 3.9 g/dL (3.4-5.0); Alkaline Phosphatase 106 U/L (46-116); Anion Gap 7.4 mmol/L (3-11); BUN 16 mg/dL (7-18); Bilirubin, Total 2.1 mg/dL (0.2-1.0); CO2 27.6 mmol/L (21.0-32.0); CREATININE 1.2 mg/dL (0.70-1.30); Chloride 102 mmol/L (98-107); Glucose 324 mg/dL (74-106); Lipase 44 U/L (<78); Potassium 3.7 mmol/L (3.5-5.1); Sodium 137 mmol/L (136-145); Total Protein 7.1 g/dL (6.4-8.2); Troponin I 6 ng/L (<or=76)
[2024-08-02] MEDS: Lactated Ringers 1,000 ML 1000 ML IV (13:45)
[2024-08-02] MEDS: Lidocaine 5% Patch 1 PATCH TP (13:45)
[2024-08-02] MEDS: nitroGLYcerin 0.4 MG TAB SL (13:45)
[2024-08-02 13:49] LABS: D-Dimer 264 ng/mlFEU (<500)
[2024-08-02 14:36] LABS: Troponin I 6 ng/L (<or=76)
--- NOTE | 2024-08-02 14:43 | W.ED.GENAD ---
Discharge Plan Disposition Patient Disposition: Home Condition: Good Discharge Details Clinical Impression: Chest discomfort Primary Care Provider: Dino Dee ED Provider: Jericho Mistry Home Meds and New Rx's Prescriptions: No Action (DME) Medial Offloader Brace Qty: 1 0RF Rx Instructions: Please apply to RIGHT knee for medial OA and instability semaglutide 14 mg tablet 14 mg PO DAILY Qty: 90 4RF Rx Instructions: take one tablet daily metformin 1,000 mg tablet 1,000 mg PO DAILY Qty: 90 4RF Rx Instructions: decreased by pt/ NOT SENT (DME) Blood Glucose Test Strip 1 ea Miscellaneous DAILY Qty: 100 3RF Rx Instructions: FOR One Touch METER. Ultra Blue. PT DOES NOT USE INSULIN. E11.9E omeprazole 20 mg capsule,delayed release(DR/EC) 20 mg PO DAILY Qty: 90 3RF Centrum Complete 18-400 mg-mcg tablet 1 tab PO DAILY (DME) lancets 28 gauge misc 1 ea Miscellaneous DAILY Qty: 100 6RF Rx Instructions: FOR One Touch METER. NO INSULIN. DIAGNOSIS CODE E11.9 (DME) blood-glucose meter [OneTouch Ultra2 Meter] Misc 1 ea Miscellaneous DAILY Qty: 1 4RF Rx Instructions: Check blood sugar twice a day lisinopril 20 mg tablet 20 mg PO DAILY Qty: 90 4RF Rx Instructions: take one tablet daily rosuvastatin [Crestor] 40 mg tablet 40 mg PO DAILY Qty: 90 4RF bupropion HCl 150 mg tablet extended release 24 hr 150 mg PO QAM Qty: 90 1RF dapagliflozin propanediol 10 mg tablet 10 mg PO DAILY Qty: 90 1RF Discharge Instructions Instructions: Chest Pain, Adult ED Additional Instructions: At this time your workup shows no evidence of significant lung pathology, blood clot, heart attack, or other pathology. Please take Tylenol and Motrin as needed for the pain. Add ice or heating pad to the soreness in your chest as I do suspect there may be component of musculoskeletal irritation to that area. Please follow-up closely with your primary care provider for reassessment and potential nonemergent outpatient stress testing. If you notice any worsening of your symptoms, or any new symptoms such as vomiting, diarrhea, fever, chills, shortness of breath, chest pain, numbness, weakness, or fainting , please return immediately to the emergency department for reevaluation. Please follow up with your primary care provider as soon as possible for reassessment and reevaluation. As always, it was a pleasure participating in your medical care today. Referrals: Dino Dee [Primary Care Provider, Medicine] [facility] General Date/Time Provider Initiated Documentation: 08/02/24 12:51. HPI Narrative: 49-year-old male with past medical history of diabetes, hypertension, high cholesterol, and mild tobacco use years ago, presents today with 2 days of left-sided chest pain. Pain began 2 days ago while sitting and resting, it is worsened when he was doing some activities. He states that it is worsens when he breathes, palpates his left anterior chest wall, or moves. It is sharp in nature. No heaviness or achiness otherwise. No neck pain or headache. No fever or chills. No syncope. He does have a family history of cardiac disease. He denies syncope. He denies vomiting or diarrhea. He denies any other aggravating or relieving factors. He denies any history of cardiac disease. No other complaints at this time. No other modifying factors. Denies PE risk factors such as recent long car rides, immobilization, recent surgery, prior history of DVT or PE, family history of PE or DVT, morbid obesity, exogenous estrogen and smoking, hemoptysis, history of cancer. Related Data Home Medications ?Medication ?Instructions ?Recorded ?Confirmed multivitamin-ferrous 1 tab PO DAILY 12/04/18 08/02/24 fumarate-folic acid 18 mg-400 mcg tablet (Centrum Complete) lancets 28 gauge #100 ea 01/23/19 08/02/24 Medial Offloader Brace #1 ea 04/09/19 08/02/24 blood-glucose meter (OneTouch #1 ea 11/22/19 08/02/24 Ultra2 Meter) lisinopril 20 mg tablet 20 mg PO DAILY #90 tab-caps 10/27/20 08/02/24 rosuvastatin 40 mg tablet (Crestor) 40 mg PO DAILY #90 tab-caps 10/27/20 08/02/24 semaglutide 14 mg tablet 14 mg PO DAILY #90 tabs 12/22/20 08/02/24 metformin 1,000 mg tablet 1,000 mg PO DAILY #90 tab-caps 12/24/20 08/02/24 blood sugar diagnostic (Blood #100 strips 03/24/21 08/02/24 Glucose Test strips) omeprazole 20 mg capsule,delayed 20 mg PO DAILY #90 tab-caps 03/24/21 08/02/24 release bupropion HCl 150 mg 24 hr tablet, 150 mg PO QAM #90 tabs 05/27/21 08/02/24 extended release dapagliflozin propanediol 10 mg 10 mg PO DAILY #90 tabs 09/03/21 08/02/24 tablet Previous Rx's ?Medication ?Instructions ?Recorded lancets 28 gauge #100 ea 01/23/19 Medial Offloader Brace #1 ea 04/09/19 blood-glucose meter (OneTouch #1 ea 11/22/19 Ultra2 Meter) lisinopril 20 mg tablet 20 mg PO DAILY #90 tab-caps 10/27/20 rosuvastatin 40 mg tablet (Crestor) 40 mg PO DAILY #90 tab-caps 10/27/20 semaglutide 14 mg tablet 14 mg PO DAILY #90 tabs 12/22/20 metformin 1,000 mg tablet 1,000 mg PO DAILY #90 tab-caps 12/24/20 blood sugar diagnostic (Blood #100 strips 03/24/21 Glucose Test strips) omeprazole 20 mg capsule,delayed 20 mg PO DAILY #90 tab-caps 03/24/21 release bupropion HCl 150 mg 24 hr tablet, 150 mg PO QAM #90 tabs 05/27/21 extended release dapagliflozin propanediol 10 mg 10 mg PO DAILY #90 tabs 09/03/21 tablet Allergies Allergy/AdvReac Type Severity Reaction Status Date / Time No Known Allergies Allergy Verified 08/02/24 12:35 General Stated Complaint: Chest Pain LUKE: 3 Exam Narrative Exam Narrative: 1.Const: Well-nourished, Well-developed, appearing stated age 2.Eyes: PERRL, no conjunctival injection, and symmetrical lids. 3.ENT: Atraumatic external nose and ears. Moist MM. Neck: Symmetric, trachea midline, No thyromegaly. 4.CVS: +S1/S2, Peripheral pulses 2+ and equal in all extremities. Brisk capillary refill in all extremities. 5.RESP: Unlabored respiratory effort. Clear to auscultation bilaterally. No wheezes rales or rhonchi. Minimal reproducible chest wall this over the left chest. 6.GI: Soft, Nontender/Nondistended, No hepatosplenomegaly. No guarding or rebound. 7.MSK: Normocephalic/Atraumatic, Extremities w/o deformity or ttp No cyanosis or clubbing, Normal movement of all extremities 8.Skin: Warm, Dry. No rashes or lesions. 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 Sensation grossly intact, no focal neurologic deficits. 10.Psych: (AAO) x3. Appropriate mood and affect Course Vital Signs Vital signs: Vital Signs Temperature 36.7 C 08/02/24 12:26 Pulse 81 08/02/24 12:26 Respiratory Rate 20 08/02/24 12:26 Blood Pressure 146/79 H 08/02/24 12:26 Pulse Oximetry 96 08/02/24 12:26 Temperature 36.7 C 08/02/24 12:26 Temperature Source Oral 08/02/24 12:26 Pulse 76 08/02/24 14:16 Pulse 85 08/02/24 14:16 Respiratory Rate 17 08/02/24 14:16 Respiratory Effort Normal 08/02/24 13:19 Respiratory Depth Normal 08/02/24 13:19 Respiratory Pattern Normal 08/02/24 13:19 Blood Pressure 130/81 08/02/24 14:16 Blood Pressure Mean 92 08/02/24 14:16 Blood Pressure Position Sitting 08/02/24 12:26 Pulse Oximetry 94 08/02/24 14:16 Oxygen Delivery Method Room Air 08/02/24 12:26 Oxygen Flow Rate 0 08/02/24 12:26 Pain Level 8 08/02/24 12:26 Lab/Test Results Lab/Test Results: Laboratory Tests Range/Units 08/02/24 08/02/24 13:12 13:55 WBC (4.4-10.8) 10^3/uL 6.45 RBC (4.36-5.78) 10^6/uL 5.24 Hgb (13.5-17.5) g/dL 15.9 Hct (40.0-50.0) % 45.7 MCV (80-95) fL 87 MCH (27.0-33.0) pg 30.3 MCHC (32.0-36.0) % 34.8 RDW (11.8-14.1) % 11.5 L Plt Count (130-400) 10^3/uL 164 MPV (8.0-11.0) fL 10.4 Immature Gran % % 0.2 Neutrophils % % 70.7 Lymphocytes % % 20.2 Monocytes % % 7.0 Eosinophils % % 1.6 Basophils % % 0.3 Nucleated RBC % (0.0-0.3) % 0.0 Absolute Neutrophils (1.2-6.7) 10^3/uL 4.57 Absolute Lymphocytes (1.2-3.4) 10^3/uL 1.30 Absolute Monocytes (0.1-0.8) 10^3/uL 0.45 Absolute Eosinophils (0.0-0.7) 10^3/uL 0.10 Absolute Basophils (0.0-0.2) 10^3/uL 0.02 D-Dimer (<500) ng/mlFEU 264 Sodium (136-145) mmol/L 137 Potassium (3.5-5.1) mmol/L 3.7 Chloride (98-107) mmol/L 102 Carbon Dioxide (21.0-32.0) mmol/L 27.6 Anion Gap (3-11) mmol/L 7.4 BUN (7-18) mg/dL 16 Creatinine (0.70-1.30) mg/dL 1.2 Est GFR (CKD-EPI 2020) (mL/min/1.73m2) 74.60 Glucose (74-106) mg/dL 324 H Calcium (8.5-10.1) mg/dL 9.0 Total Bilirubin (0.2-1.0) mg/dL 2.1 H AST (15-37) U/L 13 L ALT (16-63) U/L 30 Alkaline Phosphatase (46-116) U/L 106 Troponin I (<or=76) ng/L 6 6 Total Protein (6.4-8.2) g/dL 7.1 Albumin (3.4-5.0) g/dL 3.9 Lipase (<78) U/L 44 Medical Decision Making 49-year-old male with past medical history of diabetes, hypertension, high cholesterol, and mild tobacco use years ago, presents today with 2 days of left-sided chest pain. Pain began 2 days ago while sitting and resting, it is worsened when he was doing some activities. He states that it is worsens when he breathes, palpates his left anterior chest wall, or moves. It is sharp in nature. No heaviness or achiness otherwise. No neck pain or headache. No fever or chills. No syncope. He does have a family history of cardiac disease. He denies syncope. He denies vomiting or diarrhea. He denies any other aggravating or relieving factors. He denies any history of cardiac disease. No other complaints at this time. No other modifying factors. Denies PE risk factors such as recent long car rides, immobilization, recent surgery, prior history of DVT or PE, family history of PE or DVT, morbid obesity, exogenous estrogen and smoking, hemoptysis, history of cancer. Exam demonstrates well-appearing male, equal pulses, mild reproducible chest wall tenderness to the anterior chest wall. Differential is high for musculoskeletal etiology. However because of his age and risk factors we will evaluate for cardiac etiology. Symptoms appear less consistent for pneumothorax, or PE. Will monitor for these. We will give nitroglycerin and reassess. He did receive 324 aspirin at urgent care prior to arrival. 2:55 PM Patient's EKG is benign. Initial and repeat serial troponins are all within normal limits, D-dimer is normal at 264, electrolytes normal, lipase normal. Chest x-ray demonstrates no acute process, no pneumothorax or other significant abnormality. Nitroglycerin gave no improvement to the patient's symptomatology. GI cocktail was administered. Patient's vital signs remain notably stable with no significant hypertension or tachycardia or hypoxemia or tachypnea. No evidence to suggest dissection, PE, pneumothorax, or AR/STEMI. Patient stable for discharge. Suspect musculoskeletal component. Recommend close follow-up with PCP, as well as potential nonemergent outpatient stress testing. Recommend NSAID therapy and ice and heating pad. I have extensively reviewed the treatment plan and discharge instructions with the patient and their family. I have addressed all patient concerns at this time. The patient and family was made aware of what symptoms to monitor for that would warrant a return to the emergency department. Discussed the plan with the patient and family, they demonstrate verbal understanding and agreement with our assessment and plan at this time. The documentation in this chart was dictated using [employer] dictation software. Please excuse any dictation errors. FINDINGS: MEDIASTINUM: Normal. HEART: Normal. PULMONARY VASCULATURE: Normal. LUNGS: Clear. PLEURAL SPACE: No pleural effusion or pneumothorax. BONE:Within normal limits for the patient's age. OTHER FINDINGS:Normal. IMPRESSION: No acute pulmonary findings. PFSH All Active Problems (Updated 08/02/24 @ 14:50 by Jericho Mistry DO) Chest discomfort (Acute) Chest pain (Acute) Essential hypertension (Acute) Type 2 diabetes mellitus with diabetic nephropathy (Acute) Degenerative joint disease of right knee (Chronic) Depo-Medrol injection: 03/26/2019 Synvis injections - Dr. Bangura Obesity (Chronic) History of lymph node excision (Acute) Lower respiratory infection (e.g., bronchitis, pneumonia, pneumonitis, pulmonitis) (Acute 11/04/15) Hyperlipidemia (Acute) Gastroesophageal reflux disease with esophagitis (Acute) Atypical chest pain (Acute 02/27/14) negative nuclear stress test (Sestamibi)/EF 49% Medical History (Updated 08/02/24 @ 14:50 by Jericho Mistry DO) Acute appendicitis Surgical History (Updated 07/01/23 @ 11:49 by Talia Alcaraz CMA) S/P laparoscopic appendectomy (~06/2023) PROCEDURES EXCISE INGUINAL NODE right inguinal node bx Family History Mother Alzheimer disease Father , age 71 Essential hypertension Heart disease Hyperlipidemia Cancer Depression Maternal Grandfather Cancer Hypertension Paternal Grandfather , age 58 Alcohol abuse Depression Diabetes Heart disease Maternal Grandmother , age 64 Diabetes Heart disease Hyperlipidemia Stroke Alcohol abuse Depression Social History Smoking/Tobacco Use Status: Former Tobacco Use Tobacco: How many years used: 15 Second Hand Exposure: Yes Smoking risk assessment performed?: Yes Alcohol Intake: current Alcohol Intake frequency: 3 or more drinks per day Alcohol type: hard liquor Drug use: Daily Substance use type: marijuana Caregiver/Support person: No Household members: family Housing: house Communication Needs: None Do you need help understanding health information?: Rarely Pets and animals: Yes Pets and animals: cat(s) and dog(s) Sexually active: No Do you think of yourself as: straight/heterosexual Current gender identity: male What is your relationship status?: How often do you talk on the phone with friends or family?: twice per week How often do you get together with friends or relatives?: once per week How often do you attend pentecostal or sabianism services?: decline to answer Do you belong to any clubs or organized social groups?: no Panel score (0-1 are the most socially isolated patients): 2 What type of physical activity do you participate in: walking Duration: 30-45 minutes/day Frequency: 5-6 times per week Jazmine/Sikh: Unitarian Universalist Special jazmine needs: No Seatbelt use: always Helmet use: No Drive intox or ride w/intox garbage truck driver: No Do you feel safe at home: Yes Do you feel safe in your relationship?: Yes
[2024-08-02] MEDS: MYLANTA 30 ML, LIDOCAINE 2% VISCOUS UD 15 ML PO (14:54)
== END 2024-08-02 14:57 | disposition home or self-care (01) ==
PROVIDERS: Emergency Provider Student in an Organized Health Care Education/Training Program; PCP Physician Assistant
DX: R07.9 Chest pain, unspecified (principal); E11.9 Type 2 diabetes mellitus without complications; I10 Essential (primary) hypertension; E78.5 Hyperlipidemia, unspecified; Z79.84 Long term (current) use of oral hypoglycemic drugs; Z79.85 Long-term (current) use of injectable non-insulin antidiabetic drugs; Z87.891 Personal history of nicotine dependence
CPT/HCPCS: 36415; 80053; 83690; 93005; 96360; 99285; 71045; 84484; 85025; 85379; 93010; 99284

== ENCOUNTER 2024-08-10 22:38 | Outpatient (REF) | payer MEDICARE, MEDICAID, SELFPAY ==
[2024-08-10 22:06] LABS: ALT 27 U/L (16-63); AST 16 U/L (15-37); Albumin 4.3 g/dL (3.4-5.0); Alkaline Phosphatase 111 U/L (46-116); BUN 18 mg/dL (7-18); Bilirubin, Direct 0.3 mg/dL (0.0-0.2); Bilirubin, Total 1.6 mg/dL (0.2-1.0); Calcium 9.4 mg/dL (8.5-10.1); Chloride 103 mmol/L (98-107); Estimated GFR 92.84 (mL/min/1.73m2); Glucose 205 mg/dL (74-106); Potassium 3.8 mmol/L (3.5-5.1); Sodium 142 mmol/L (136-145); TSH (W/Ref FT4) 1.16 uIU/mL (0.36-3.74); Total Protein 7.3 g/dL (6.4-8.2)
[2024-08-13 11:21] LABS: Lyme Ab w Rflx to Lyme Confirm Negative (Negative)
[2024-08-13 13:51] LABS: ANA Interpretation Negative (Negative)
[2024-08-14 22:07] LABS: Anaplasma phagocytophilum Negative (Negative); B. miyamotoi PCR Negative (Negative); Babesia divergens/MO-1 Negative (Negative); Babesia duncani Negative (Negative); Babesia microti Negative (Negative); Ehrlichia chaffeensis Negative (Negative); Ehrlichia ewingii/canis Negative (Negative); Ehrlichia muris eauclairensis Negative (Negative)
[2024-08-18 14:23] LABS: Mitochondrial Ab, M2 <0.1 U
== END 2024-08-10 22:39 | disposition home or self-care (01) ==
LOC: NCHCN 22:38
PROVIDERS: PCP Physician Assistant; Visit Provider Student in an Organized Health Care Education/Training Program
DX: R17 Unspecified jaundice (principal); R53.83 Other fatigue
CPT/HCPCS: 80053; 83516; 87798; 82248; 84443; 86038; 86618

== ENCOUNTER 2024-08-21 01:33 | Outpatient (CLI) | payer MEDICARE, MEDICAID, SELFPAY ==
--- NOTE | 2024-08-21 | DI.US_ITS ---
Exam(s) US ABDOMEN LIMITED EXAM: US ABDOMEN LIMITED CLINICAL HISTORY: Elevated bilirubin R17 Jaundice recent ER vidit for Chest Pain no abnlty CT TECHNIQUE: Ultrasound abdomen performed using standard protocol. COMPARISON: US ABDOMEN ULTRASOUND (P) from 07/30/2016 FINDINGS: There is no ascites evident. LIVER: Hyperechoic indicating steatosis. Mild hepatomegaly. No ominous focal hepatic lesions evident. GALLBLADDER/BILIARY: There are no mobile shadowing gallstones. There are 2 small similar appearing polyps on the dependent wall the gallbladder measuring up to 4 mm. The common hepatic duct isnot dilated, measuring 3-4mm at the level of igor hepatis. PANCREAS: There is no evidence of pancreatic mass nor dilatation of the pancreatic duct. RIGHT KIDNEY:No evidence of solid mass, calculus, nor hydronephrosis. No cortical cysts evident. IMPRESSION: 1. There are 2 similar appearing polyps in the gallbladder measuring up to 4 mm. No obvious mobile gallstones. Biliary tree is not dilated. 2. Hepatic steatosis and mild hepatomegaly. No discrete focal hepatic lesions. 3. No other right upper quadrant ultrasound findings and there is no ascites. DATA REPOSITORY:
== END 2024-08-21 01:53 ==
LOC: DI 01:33
PROVIDERS: PCP Physician Assistant; Visit Provider Student in an Organized Health Care Education/Training Program
DX: N20.0 Calculus of kidney (principal); K76.0 Fatty (change of) liver, not elsewhere classified
CPT/HCPCS: 76705

== ENCOUNTER 2025-01-11 10:29 | Outpatient (REF) | payer MEDICARE, MEDICAID, SELFPAY | END 2025-01-11 10:30 | disposition home or self-care (01) | LOC: NCHCN 10:29 | PROVIDERS: PCP Physician Assistant; Visit Provider Physician Assistant | DX: E11.9 Type 2 diabetes mellitus without complications (principal) | CPT/HCPCS: 82043; 82570 ==

== ENCOUNTER → 2025-01-24 13:02 | Outpatient (BNVA) | payer MEDICARE, MEDICAID, SELFPAY | PROVIDERS: PCP Physician Assistant; Referring Provider Physician Assistant; Visit Provider Physical Therapy Assistant | DX: Z12.11 Encounter for screening for malignant neoplasm of colon (principal) | CPT/HCPCS: S0285 ==

== ENCOUNTER 2025-02-06 09:34 | Day surgery (SDC) | payer MEDICARE, MEDICAID, SELFPAY ==
[2025-02-06 09:51] VITALS: BP 124/87; PULSE 89; RESP 16; TEMP 36.1; O2SAT 97
[2025-02-06] MEDS: Lactated Ringers 1,000 ML 80 ML IV (09:58)
--- NOTE | 2025-02-06 10:01 | W.ANESPRE ---
General Info Date of Service Date Performed: 02/06/25 Height: 6 ft 1 in Weight: 105.4 kg Body Mass Index (BMI): 30.7 Surgical Procedure: Operation Date: 02/06/25 11:05 Proposed Procedure Side Surgeon mohan Gonzalez MD Meds Allergies and Home Medications Allergies Allergy/AdvReac Type Severity Reaction Status Date / Time No Known Allergies Allergy Verified 02/06/25 09:51 Home Medication ?Medication ?Instructions ?Recorded multivitamin-ferrous 1 tab PO DAILY 12/04/18 fumarate-folic acid 18 mg-400 mcg tablet (Centrum Complete) lancets 28 gauge #100 ea 01/23/19 Medial Offloader Brace #1 ea 04/09/19 blood-glucose meter (OneTouch #1 ea 11/22/19 Ultra2 Meter) lisinopril 20 mg tablet 20 mg PO DAILY #90 tab-caps 10/27/20 Held on 02/04/25. Instructions: Pt Stopped/Never Started rosuvastatin 40 mg tablet (Crestor) 40 mg PO DAILY #90 tab-caps 10/27/20 semaglutide 14 mg tablet 14 mg PO DAILY #90 tabs 12/22/20 Held on 02/04/25. Instructions: Pt Stopped/Never Started metformin 1,000 mg tablet 1,000 mg PO DAILY #90 tab-caps 12/24/20 blood sugar diagnostic (Blood #100 strips 03/24/21 Glucose Test strips) omeprazole 20 mg capsule,delayed 20 mg PO DAILY #90 tab-caps 03/24/21 release bupropion HCl 150 mg 24 hr tablet, 150 mg PO QAM #90 tabs 05/27/21 extended release dapagliflozin propanediol 10 mg 10 mg PO DAILY #90 tabs 09/03/21 tablet aspirin 81 mg tablet 81 mg PO DAILY 12/19/24 dulaglutide 3 mg/0.5 mL 3 mg subcut QWEEK 12/19/24 [facility] glimepiride 2 mg tablet 2 mg PO DAILY 12/19/24 Held on 02/04/25. Instructions: Pt Stopped/Never Started pioglitazone 15 mg tablet 15 mg PO DAILY 12/19/24 bisacodyl 5 mg tablet,delayed 5 mg PO ONCE #4 tabs 01/24/25 release (Dulcolax (bisacodyl)) polyethylene glycol 3350 17 17 g PO ONCE #238 grams 01/24/25 gram/dose oral powder Current Visit Medications: Current Medications Generic Name Dose Route Start Last Admin Trade Name Freq PRN Reason Stop Dose Admin Ringer's Solution 1,000 mls @ 80 mls/hr 02/06/25 06:00 02/06/25 09:58 IV 02/06/25 23:59 80 mls/hr INFUSION GAVIN Administration Sodium Chloride 0 ml 02/06/25 06:00 Normal Saline Flush 10 Ml Syr IV 02/06/25 23:59 PRN PRN Sodium Chloride 0 ml 02/06/25 06:00 Normal Saline 10 Ml Vial IJ 02/06/25 23:59 DIRECTED PRN Sterile Water 0 ml 02/06/25 06:00 Water,Injection,Sterile 10 Ml Vial IJ 02/06/25 23:59 DIRECTED PRN PFSH Active Problems Active Problems: Problem Status Onset Code Chest pain Acute R07.9 Essential hypertension Acute I10 Type 2 diabetes mellitus with diabetic nephropathy Acute E11.21 Degenerative joint disease of right knee Chronic M17.11 Obesity Chronic E66.9 History of lymph node excision Acute Z98.890 Lower respiratory infection (e.g., bronchitis, pneumonia, pneumonitis, pulmonitis) Acute 11/04/15 J22 Hyperlipidemia Acute E78.5 Gastroesophageal reflux disease with esophagitis Acute K21.0 Atypical chest pain Acute 02/27/14 R07.89 Medical History Medical History Acute appendicitis Surgical History Surgical History S/P laparoscopic appendectomy (~06/2023) PROCEDURES EXCISE INGUINAL NODE right inguinal node bx Tobacco Smoking/Tobacco Use Status: Former Tobacco Use Passive smoking exposure: Yes Second hand exposure: Yes Alcohol Alcohol Intake: current Alcohol intake frequency: a few times a week Alcohol type: hard liquor Substance Use Substance use: Daily Substance use type: marijuana Vital Signs and Lab Results Vital Signs Most Recent Vital Signs in EMR: Most Recent Vital Signs Temp Pulse Resp BP Pulse Ox 36.1 C L 89 16 124/87 97 02/06/25 09:51 02/06/25 09:51 02/06/25 09:51 02/06/25 09:51 02/06/25 09:51 Point of Care Results Point of Care Results: Finger Stick Blood Glucose 210 02/06/25 09:42 Imaging and Studies Imaging and Studies Study information below may be from another EMR and interpreted by another provider. Please see original notes in EMR for more complete details. EKG Summary: EKG PATIENT NAME: Erick Palmer JR UNIT #: [id number] ORDERING PROVIDER: Romario Acevedo M.D. PRIMARY CARE PROVIDER: ALEX BOWEN DATE/TIME OF SERVICE: 06/09/232221 : 1975 PERFORMING LOCATION: ER APPROVED REPORT Exam: Resting ECG Reason for Exam: chest pain Patient Location: E HR:70 bpm ECG Measurements Heart Rate 70 AXIS DC 199 P 68 QRSd 104 QRS 56 QT 417 T31 QTc 451 Conclusion Sinus rhythm...normal P axis, V-rate 60- 99 <Electronically signed by Romario Acevedo M.D. in OV> E-Sign Date: 06/10/23 E-Sign Time: 28 ADDENDUM APPROVED REPORT Exam: Resting ECG Reason for Exam: chest pain Patient Location: E HR:70 bpm ECG Measurements Heart Rate 70 AXIS DC 199 P 68 QRSd 104 QRS 56 QT 417 T31 QTc 451 Conclusion Sinus rhythm...normal P axis, V-rate 60- 99 I have reviewed and interpreted ECG and agree with software generated interpretation. Electronically signed by: <Electronically signed by Sandra Shirley M.D. in OV> 06/10/23 0810 Cosigned by: Stress Test Summary: Patient Name: ERICK PALMER JR Unit #: [id number] Loc: Ordering Provider: ELIZABETH PICHARDO M.D. Status: REG CLI Primary Care Provider: ELIZABETH PICHARDO M.D. Date of Exam: 02/25/14 Sex: M : 1975 Age: 38 Exam(s) [id number] NM:MPI Resting & Stress GRP Reason for exam: 786.50 CHEST PAIN Medical History: Comment: SYMPTOMS/DIAGNOSIS: CHEST PAIN Department of Nuclear Medicine SPECT Nuclear Cardiology Report Prior: Exercise: X Lexiscan: Dose: 0.4mgm REST: 11.3 mCi [id number] IV was administered at 9:40 AM on 02/25/14 in accordance with established rest protocol procedures. Images of the heart were obtained with SPECT reconstruction. STRESS: 34.3 mCi [id number] IV was administered at 10:55 AM on 02/25/14 in accordance with established stress protocol procedures. Images of the heart were obtained with SPECT reconstruction. INTERPRETATION: View Normal Transient Mixed Fixed Perfusion Defect Defect Defect Short [place] X Vertical Long [place] X Horizontal Long [place] X Low dose, non-diagnostic CT used for attenuation correction only. EJECTION FRACTION: WNL 49% EDV: 99 ml ESV: 51 ml GATED WALL MOTION: X NORMAL OTHER (DESCRIBE) CONCLUSION: No evidence of ischemia. TECH: BC CC: ELIZABETH PICHARDO MD Dictated By: GURPREET MATT M.D. [id number] <Electronically signed by GURPREET JARAMILLO M.D.> 02/27/14 1503 <Electronically signed by ROBERTA MATT M.D.> 04/15/14 1020 Transcribed By: Marie Jolley 02/26/14 1117 This is privileged, confidential information intended only for the provider named. Any use or distribution by any person other than this provider is strictly prohibited. If you receive this report in error, please notify us immediately at [phone] and return the original report to us at the address above. Thank-you. Echocardiogram Summary: Echocardiogram Report PATIENT NAME: ERICK PALMER JR UNIT #: [id number] ADMITTING PROVIDER: JAYDON SHORE,PhD,[facility] PRIMARY CARE PROVIDER: ELIZABETH PICHARDO M.D. DATE OF SERVICE: 04/10/14 : 1975 April 10, 2014 OUTPATIENT ORDERING PHYSICIAN: Elizabeth Pichardo MD HEIGHT: 6 FT 1 IN WEIGHT: 287 LBS BSA: 2.5 BP: 130/86 STUDY INDICATIONS: Chest pain. EKG: Sinus rhythm. FINDINGS: LEFT VENTRICLE: Normal size. Normal wall thickness, normal systolic function. EF 55-60%. No regional wall motion abnormalities. RIGHT VENTRICLE: Normal size and function. AORTIC VALVE: Probably trileaflet. No stenosis or regurgitation. MITRAL VALVE: Structurally normal, no regurgitation or stenosis. TRICUSPID VALVE: Structurally normal. No significant regurgitation or stenosis. RSV/PA PRESSURE: Pulmonary artery pressure could not accurately be estimated. PULMONIC VALVE: Grossly normal. No regurgitation or stenosis. LEFT/RIGHT ATRIA: Within normal limits. DIASTOLIC INDICES: Normal diastolic function for age. GREAT VESSELS: Aorta normal size. IVC normal size, collapses less than 50% with inspiration. PERICARDIUM: No effusion. SUMMARY: Normal biventricular size and function. No significant valvular heart disease. MEASUREMENTS: LVESD 33 mm LVEDD 47 mm IVS 9 mm PW 9 mm Ascending Aorta 36 mm AO Root 31 mm Aortic Arch 33 AV AO Velocity LA LA Volume 22 RA 14 cm sq. Right atrial pressure AV-PK/MN LVOT size LVOT gradient Deceleration time 246 m/sec Isovolumic relaxation time E/A ratio 1.1 IVC collapses Partially. Dictated by: JAYDON SHORE,PhD,[facility] Dictated:: 04/10/14 1121 <Electronically signed by Bruce Carrillo M.D.> 04/10/14 1205 Transcribed Date: 04/10/14 Transcribed Time: 1137 By: This is privileged, confidential information, intended only for the provider named. Any use or distribution by any person other than this provider is strictly prohibited. If you receive this report in error, please notify us immediately at [phone] and return the original report to us at the address above. Thank you. Anesthesia Assessment and Plan Anesthesia History Personal History: No History of Anesthesia Complications Family History: No Family History of Anesthesia Complications Exercise Tolerance Exercise Tolerance: Metabolic Equivalents>4 Pertinent Negatives Pertinent Negatives: No Symptoms of GERD (well controlled with meds), No Major Cardiovascular Symptoms or Complaints and No Major Pulmonary Symptoms or Complaints Cardiac & Pulmonary Exam Cardiac Exam: Normal S1/S2 Heart Sounds Pulmonary Exam: Clear Bilateral Breath Sounds Implantable Cardiac Device Does patient have a Pacemaker or an ICD?: No Airway Exam Known Difficult Airway: No Mallampati Class: 2 Mouth Opening: Normal (> 3cm) Thyromental Distance: Greater than 3 cm Neck Range of Motion: Full ROM Neck Circumference: Normal Teeth Condition: Normal Dentition and Loose or Chipped (some missing, some chipped, none loose per patient) ASA Classification ASA Score: ASA 3 Emergency Case?: No NPO Status NPO Status: NPO Clears >2 hours, Solids >8 hours Anesthesia Plan Resuscitation Status: Full Code Anesthesia Technique: General Anesthesia Airway Planned: Natural Airway Monitors Used: Standard Monitors Preoperative Comments:: Last A1C 8 per patient, in system last 05/08/24 was 8.5
[2025-02-06 10:08] VITALS: BMI 30.7
--- NOTE | 2025-02-06 10:42 | BOWEL_PTH ---
PATIENT: Erick Palmer JR LOC: [facility] U#:[id number] AGE/SX: 49/M ROOM: RE02/06/[address]: Traci Gonzalez : 1975 BED: DIS: 02/06/2025 SPEC #: [id number] RECD: 02/06/25 12:45 STATUS: CELESTE REQ #: [id number] MARIBEL: 02/06/25 10:[address]: Traci Gonzalez DEPT: Surgical Specimen RECD BY: Joy Hunter ENTERED: 02/06/25 12:46 SP TYPE: Bowel OTHR DR: Dino Dee Tissues: 1 - BIOPSY BOWEL 2 - BIOPSY BOWEL Procedures: GROSS AND MICRO LEVEL 4 Comments: [id number]
--- NOTE | 2025-02-06 11:02 | W.PM.DSUDISC ---
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 Ultra Blue. PT DOES NOT USE INSULIN. E11.9E omeprazole 20 mg capsule,delayed release(DR/EC) 20 mg PO DAILY Qty: 90 3RF Centrum Complete 18-400 mg-mcg tablet 1 tab PO DAILY pioglitazone 15 mg tablet 15 mg PO DAILY glimepiride 2 mg tablet 2 mg PO DAILY aspirin 81 mg tablet 81 mg PO DAILY Trulicity 3 mg/0.5 mL pen injector 3 mg subcut QWEEK (DME) lancets 28 gauge misc 1 ea Miscellaneous DAILY Qty: 100 6RF Rx Instructions: FOR One Touch METER. NO INSULIN. DIAGNOSIS CODE E11.9 (DME) blood-glucose meter [OneTouch Ultra2 Meter] Misc 1 ea Miscellaneous DAILY Qty: 1 4RF Rx Instructions: Check blood sugar twice a day lisinopril 20 mg tablet 20 mg PO DAILY Qty: 90 4RF Rx Instructions: take one tablet daily rosuvastatin [Crestor] 40 mg tablet 40 mg PO DAILY Qty: 90 4RF bupropion HCl 150 mg tablet extended release 24 hr 150 mg PO QAM Qty: 90 1RF dapagliflozin propanediol 10 mg tablet 10 mg PO DAILY Qty: 90 1RF Discontinued bisacodyl [Dulcolax (bisacodyl)] 5 mg tablet,delayed release (DR/EC) 5 mg PO ONCE Qty: 4 0RF Rx Instructions: Take per colonoscopy instructions provided by ordering providers office polyethylene glycol 3350 17 gram/dose powder 17 g PO ONCE Qty: 238 0RF Rx Instructions: Take per colonoscopy instructions provided by ordering providers office Discharge Instructions Additional Instructions: Your colonoscopy went well today. He did have 2 small polyps which were removed and will be sent to pathology. Once these results return we will contact you with recommendations for when to have a repeat colonoscopy. If you have any questions or concerns please contact the surgery office. 1. If tolerated, consume a soft, low fiber diet for 1-2 days. 2[address] Do not drive, drink alcohol, operate machinery, make critical decisions, or do activities that require coordination or balance for 24 hours. 3. Because air was put into your colon during the procedure, expelling air from your rectum (passing gas or farting) is normal. 4. You may not have a bowel movement for 1-3 days because of the colonoscopy prep. This is normal. 5. Go directly to the emergency room if you notice any of the following: Develop chills (warm to touch), or if you have a thermometer and your temperature is above 101 Difficulty breathing or difficultly swallowing Persistent vomiting Severe abdominal pain, other than gas cramps Severe chest pain Black, tarry stools Any bleeding ? exceeding one tablespoon 6. Call your physician if the site where your intravenous was started becomes red, swollen, painful, and warm to touch. 7. Your physician has reviewed your pre-procedure medications. Please continue to take those medications as previously ordered. You will be given specific information/education regarding any changes to your medications before leaving. Stand Alone Forms: Portal Information Activity:: Activity as Tolerated Diet:: As Tolerated Discharge Orders Discharge Orders: Discharge Order (Routine); Ordered 02/06/25 Ordered By: Traci Gonzalez
[2025-02-06 11:04] VITALS: BP 85/74; PULSE 91; RESP 18; TEMP 37; O2SAT 94
--- NOTE | 2025-02-06 11:04 | COLE_ITS ---
Date of service: 02/06/25 Time of Service: 11:06 Colonoscopy Report Date of procedure: 02/06/25 Pre-op diagnosis general: Screening colonoscopy Post-op diagnosis procedure note: other (Colon polyps ) Procedure: Colonoscopy with polypectomy Surgeon: Traci Gonzalez Anesthesia Type: General:No Airway Estimated blood loss (mL): 1 Pathology: other (Colon polyp at 110cm, colon polyp at 50cm ) Complications: None Disposition: PACU Indications: Patient is a 49 yo male who presents for a screening colonoscopy. He denies any changes in bowel habits. Consent was obtained prior to the procedure. Prep: Miralax/Dulcolax Procedure Start Time: 10:37 Procedure End Time: 10:55 Retraction Time: 13 Findings: Small colon polyps at 110cm and 50cm removed with cold forceps. Procedure Description: The patient was brought to the endoscopy suite and placed in the left lateral decubitus position. After induction of IV sedation, a digital rectal exam was performed.. Digital exam was normal. The colonoscope was then passed to the cecum without difficulty. Cecal intubation was confirmed by the identification of the appendiceal orifice and the ileocecal valve. Upon withdrawing the colonoscope, all mucosal surfaces were inspected. The prep was noted to be adequate. At 110cm there was a 4mm polyp, which was removed using cold forceps in its entirety. Specimen was retrieved for pathological analysis. At 50cm there was a 4mm polyp, which was removed using cold forceps in its entirety. Specimen was retrieved for pathological analysis. There was no other evidence of mucosal abnormality, polyp or cancer. Retroflexion in the rectum was unremarkable. The patient tolerated the procedure well with no complications. Postoperatively, the patient was transferred to the recovery room in stable condition. [place] Bowel Prep [place] Bowel Prep Right Colon: 3 Left Colon: 3 Transverse Colon: 3 Total Score: 9
[2025-02-06 11:29] VITALS: BP 103/70; PULSE 73; RESP 16; TEMP 36.6; O2SAT 93
--- NOTE | 2025-02-06 13:05 | W.ANESPOSTOP ---
Postoperative Evaluation Date, Time and Location Date Performed: 02/06/25 Time Performed: 11:08 Patient Location: Day Surgery Unit Vital Signs Most Recent Imported Vital Signs: Most Recent Vital Signs Temp Pulse Resp BP Pulse Ox 36.6 C 73 16 103/70 93 02/06/25 11:29 02/06/25 11:29 02/06/25 11:29 02/06/25 11:29 02/06/25 11:29 Pain Score Most Recent Pain Score: Most Recent Pain Score Pain Level 0 02/06/25 11:29 Assessment Mental Status: Awake (Alert & Oriented to Patient Baseline) Airway and Respiratory Function: Patent airway with normal (patient baseline) respiratory exam Cardiovascular Function: Hemodynamically Stable Hydration Status: Adequately Hydrated Nausea & Vomiting: No Nausea or Vomiting Pain: Pt. Denies Any Pain Peripheral Nerve Block: Patient did not receive a nerve block
== END 2025-02-06 11:50 | disposition home or self-care (01) ==
PROVIDERS: PCP Physician Assistant; Visit Provider Student in an Organized Health Care Education/Training Program
PROC: 0DJD8ZZ Inspection of Lower Intestinal Tract, Via Natural or Artificial Opening Endoscopic (ICD-10-PCS; CPT 45378; principal; 2025-02-06 11:00)
DX: Z12.11 Encounter for screening for malignant neoplasm of colon (principal); D12.5 Benign neoplasm of sigmoid colon
CPT/HCPCS: 45380; 88305; J2003; J2704